=== PATIENT | female | born 1940 | race Caucasian/White ===

== ENCOUNTER → 2016-06-17 | Outpatient (CLI) | payer BC ==
[~2016-06-17] MED LIST: ASCA500 PO; B-CO1TAB21 PO; BIOT1CAP4 PO; CALC600T37 PO; CHOL100010 PO; CYCL0.05 OP; FERR325T51 PO; LISI40TA PO; LUTE6CAP PO; METO50TA7 PO; PANT40TA PO; ZINC50TA3 PO
[2016-06-17 17:16] LABS: BASO % 0.5 %; BASO ABS # 0.03 K/uL (0-0.2); COMPLETE YES; EOS % 1.3 %; HEMATOCRIT 40.4 % (37-47); LYMPH % 48.1 %; LYMPH ABS # 2.89 K/uL (1.2-3.4); MEAN CELL VOLUME 91.6 fL (80-100); MEAN CORPUSCULAR HEMOGLOBIN 31.1 pg (25-34); MEAN CORPUSCULAR HGB CONC 33.9 g/dl (32-36); MEAN PLATELET VOLUME 8.9 fL (7.4-10.4); NEUT % 39.1 %; PLATELET COUNT 347 K/uL (130-400); RED BLOOD COUNT 4.41 M/uL (4.2-5.4); WHITE BLOOD COUNT 6.01 K/uL (4.8-10.8)
[2016-06-17 17:54] LABS: BLOOD UREA NITROGEN 20 mg/dl (7-18); BUN/CREATININE RATIO 20.4 (10-20); CARBON DIOXIDE 28 mmol/L (21-32); CHLORIDE 102 mmol/L (98-107); CREATININE 0.97 mg/dl (0.60-1.20); GLUCOSE 87 mg/dl (70-99); POTASSIUM 4.6 mmol/L (3.5-5.1); SODIUM 137 mmol/L (136-145)
== END | disposition home or self-care (01) ==
LOC: C.LABBC 12:27
PROVIDERS: ATTEND Internal Medicine Geriatric Medicine
DX: I10 Essential (primary) hypertension (principal); D64.9 Anemia, unspecified

== ENCOUNTER → 2016-11-10 | Outpatient (CLI) | payer BC ==
[2016-11-10 17:18] LABS: BASO % 0.7 %; BASO ABS # 0.04 K/uL (0-0.2); COMPLETE YES; EOS % 1.9 %; HEMATOCRIT 37.3 % (37-47); IG% 0.2 %; LYMPH % 48.1 %; LYMPH ABS # 2.85 K/uL (1.2-3.4); MEAN CELL VOLUME 88.2 fL (80-100); MEAN CORPUSCULAR HEMOGLOBIN 27.9 pg (25-34); MEAN CORPUSCULAR HGB CONC 31.6 g/dl (32-36); MONO % 10.8 %; NEUT % 38.3 %; PLATELET COUNT 378 K/uL (130-400); RED BLOOD COUNT 4.23 M/uL (4.2-5.4); WHITE BLOOD COUNT 5.93 K/uL (4.8-10.8)
[2016-11-10 18:07] LABS: ALT/SGPT 21 U/L (12-78); AST/SGOT 25 U/L (15-37); BLOOD UREA NITROGEN 15 mg/dl (7-18); BUN/CREATININE RATIO 18.4 (10-20); CARBON DIOXIDE 29 mmol/L (21-32); CHLORIDE 103 mmol/L (98-107); CREATININE 0.79 mg/dl (0.60-1.20); GLUCOSE 89 mg/dl (70-99); POTASSIUM 4.2 mmol/L (3.5-5.1); SODIUM 139 mmol/L (136-145)
[2016-11-10 18:17] LABS: ALB/GLOB RATIO 1.2 (0.9-2); ALKALINE PHOSPHATASE 70 U/L (45-117)
[2016-11-10 18:32] LABS: CALCIUM 9.5 mg/dl (8.5-10.1)
== END | disposition home or self-care (01) ==
LOC: C.LABBC 12:41
PROVIDERS: ATTEND Internal Medicine Geriatric Medicine
DX: I10 Essential (primary) hypertension (principal); M85.80 Other specified disorders of bone density and structure, unspecified site; M19.90 Unspecified osteoarthritis, unspecified site; I49.5 Sick sinus syndrome; Z95.0 Presence of cardiac pacemaker; E55.9 Vitamin D deficiency, unspecified; D64.9 Anemia, unspecified

== ENCOUNTER → 2016-12-09 | Outpatient (CLI) | payer BC ==
[2016-12-09 13:45] LABS: HEMATOCRIT 32.1 % (37-47); MEAN CELL VOLUME 83.8 fL (80-100); MEAN CORPUSCULAR HEMOGLOBIN 25.3 pg (25-34); MEAN CORPUSCULAR HGB CONC 30.2 g/dl (32-36); MEAN PLATELET VOLUME 8.7 fL (7.4-10.4); PLATELET COUNT 420 K/uL (130-400); RED BLOOD COUNT 3.83 M/uL (4.2-5.4)
== END | disposition home or self-care (01) ==
LOC: C.LABBC 11:22
PROVIDERS: ATTEND Internal Medicine Geriatric Medicine
DX: M85.80 Other specified disorders of bone density and structure, unspecified site (principal); Z95.0 Presence of cardiac pacemaker; E55.9 Vitamin D deficiency, unspecified; D64.9 Anemia, unspecified

== ENCOUNTER → 2017-01-20 | Outpatient (CLI) | payer BC ==
[2017-01-20 13:22] LABS: BASO % 0.7 %; BASO ABS # 0.05 K/uL (0-0.2); EOS % 2.5 %; IG% 0.1 %; LYMPH ABS # 2.44 K/uL (1.2-3.4); MEAN CELL VOLUME 90.6 fL (80-100); MEAN CORPUSCULAR HEMOGLOBIN 28.6 pg (25-34); MEAN CORPUSCULAR HGB CONC 31.5 g/dl (32-36); MEAN PLATELET VOLUME 8.5 fL (7.4-10.4); MONO % 10.3 %; NEUT % 50.4 %; PLATELET COUNT 399 K/uL (130-400); RED BLOOD COUNT 2.87 M/uL (4.2-5.4); WHITE BLOOD COUNT 6.78 K/uL (4.8-10.8)
[2017-01-20 13:46] LABS: COMPLETE YES; HYPOCHROMIA PRESENT; POLYCHROMASIA 1+
== END | disposition home or self-care (01) ==
LOC: C.LABBC 11:06
PROVIDERS: ATTEND Internal Medicine Geriatric Medicine
DX: D64.9 Anemia, unspecified (principal)

== ENCOUNTER → 2017-01-24 | Outpatient (CLI) | payer BC ==
[2017-01-24 14:25] LABS: HEMATOCRIT 29.6 % (37-47); MEAN CELL VOLUME 93.7 fL (80-100); MEAN CORPUSCULAR HEMOGLOBIN 28.8 pg (25-34); MEAN CORPUSCULAR HGB CONC 30.7 g/dl (32-36); MEAN PLATELET VOLUME 8.5 fL (7.4-10.4); PLATELET COUNT 442 K/uL (130-400); RED BLOOD COUNT 3.16 M/uL (4.2-5.4); WHITE BLOOD COUNT 6.19 K/uL (4.8-10.8)
== END | disposition home or self-care (01) ==
LOC: C.LABBC 09:55
PROVIDERS: ATTEND Internal Medicine Geriatric Medicine
DX: D64.9 Anemia, unspecified (principal)

== ENCOUNTER → 2017-03-04 | Outpatient (CLI) | payer BC ==
[~2017-03-04] MED LIST changes: -LISI40TA PO
--- NOTE | 2017-03-04 14:55 | MAMMOGRAPHY REPORT ---
BILATERAL DIGITAL SCREENING MAMMOGRAM WITH CAD: 03/04/2017 CLINICAL HISTORY: Routine screening. Patient has no complaints. TECHNIQUE: Current study was also evaluated with a Computer Aided Detection (CAD) system. Bilateral CC and MLO views were obtained. COMPARISON: Comparison is made to exams dated: 03/03/2016 mammogram, 02/25/2015 mammogram, 12/05/2013 ma mmogram, 07/03/2012 mammogram, 06/30/2011 mammogram, and 06/29/2010 mammogram - [facility] nter. BREAST COMPOSITION: There are scattered areas of fibroglandular density in both breasts. FINDINGS: No suspicious masses, calcifications, or areas of architectural distortion are noted in ei ther breast. There has been no significant interval change compared to prior exams. Scattered bilater al benign-appearing calcifications are not significantly changed. IMPRESSION: ACR BI-RADS CATEGORY 2: BENIGN There is no mammographic evidence of malignancy. A 1 year screening mammogram is recommended. The pa tient will receive written notification of the results. Approximately 10% of breast cancers are not detected with mammography. A negative mammographic report should not delay biopsy if a clinically suggestive mass is present. Sherice Richardson M.D. ah/:03/04/2017 10:25:44 Assistant Community Director: Suzan HAYNES(Yary)([place])([place]), [facility] letter sent: Normal 1/2 BI-RADS Code: ACR BI-RADS Category 2: Benign
== END | disposition home or self-care (01) ==
LOC: C.MAMM 09:34
PROVIDERS: ATTEND Obstetrics & Gynecology
DX: Z12.31 Encounter for screening mammogram for malignant neoplasm of breast (principal)

== ENCOUNTER → 2017-05-04 | Outpatient (CLI) | payer BC ==
[~2017-05-04] MED LIST changes: +OPTIRAY 320 IV PRN
--- NOTE | 2017-05-04 13:10 | DIAGNOSTIC IMAGING REPORT ---
ABD/PELVIS IV AND ORAL CONT CLINICAL HISTORY: 76 years-old Female presenting with D64.9, chronic iron deficiency anemia, unable to undergo capsule study, concern for small bowel mass. TECHNIQUE: Multidetector CT of the abdomen and pelvis was performed after the administration of oral and intravenous contrast. IV contrast: 93 mL of Optiray 320. A dose lowering technique was used consistent with the principles of ALARA (as low as reasonably achievable). COMPARISON: 06/29/2014. CT DOSE (mGy.cm): The estimated cumulative dose is 271.10 mGy.cm. FINDINGS: Gang Worker topogram: Partially visualized pacer leads to the right atrium and right ventricular apex. Scoliotic curvature of the lumbar spine with posterior fusion hardware at L4-5 with interbody spacer. Lung bases: Minimal dependent changes likely atelectasis. Normal heart size. No pericardial or pleural effusion. Liver: Normal morphology. No liver lesion. Patent hepatic vasculature. Biliary: No intrahepatic or extrahepatic biliary ductal dilatation. Normal gallbladder. Pancreas: Normal. Spleen: Normal. Adrenal glands: Normal. Kidneys and ureters: Small hypodensity at the superior pole of the right kidney likely simple cyst. Mild left pelvocaliectasis. No nephrolithiasis. The ureters are normal and nondilated. Bladder: The configuration of the bladder suggests ligamentous laxity in the pelvis. Pelvic organs: Uterus surgically absent. Bowel: Diverticulosis of the sigmoid colon. Mild stool burden throughout the colon, which is normal in caliber. No evidence of a small bowel mass. No bowel obstruction. Large hiatal hernia. The hiatal hernia has a twisted configuration although no distention is present suggest volvulus. Peritoneal cavity: No free fluid or intraperitoneal gas. Lymph nodes: No enlarged lymph nodes in the abdomen or pelvis. Vasculature: Atherosclerosis of the normal caliber abdominal aorta. IVC patent. Abdominal wall: Small fat-containing umbilical hernia. Musculoskeletal: Posterior lumbar fusion at L4-5 with interbody spacer. Degenerative changes of the sacroiliac joints. IMPRESSION: 1. No evidence of a small bowel mass. 2. Diverticulosis, which could account for the patient's iron deficiency anemia if there is clinical history of bleeding. 3. Mild left pelvocaliectasis without evidence of left ureteral dilation or obstructing mass or calculus. This may represent left UPJ obstruction. Electronically signed by: Odin Walker M.D. 05/04/2017 1:08 PM Dictated Date/Time: 05/04/2017 12:55 PM
== END | disposition home or self-care (01) ==
LOC: C.CTS 11:50
PROVIDERS: ATTEND Internal Medicine Hematology & Oncology
DX: D64.9 Anemia, unspecified (principal); K57.90 Diverticulosis of intestine, part unspecified, without perforation or abscess without bleeding

== ENCOUNTER → 2017-07-14 | Outpatient (CLI) | payer BC ==
[~2017-07-14] MED LIST changes: -METO50TA7 PO; +METO50TA8 PO; -OPTIRAY 320 IV PRN
[2017-07-14 13:37] LABS: BASO % 0.9 %; BASO ABS # 0.05 K/uL (0-0.2); EOS % 2.4 %; EOS ABS # 0.14 K/uL (0-0.5); HEMATOCRIT 41.1 % (37-47); HEMOGLOBIN 13.6 g/dL (12.0-16.0); IG# 0.01 K/uL (0.00-0.02); LYMPH % 41.6 %; LYMPH ABS # 2.44 K/uL (1.2-3.4); MEAN CELL VOLUME 96.5 fL (80-100); MEAN CORPUSCULAR HEMOGLOBIN 31.9 pg (25-34); MEAN CORPUSCULAR HGB CONC 33.1 g/dl (32-36); MEAN PLATELET VOLUME 10.1 fL (7.4-10.4); MONO % 10.4 %; MONO ABS # 0.61 K/uL (0.11-0.59); NEUT % 44.5 %; NEUT ABS # 2.61 K/uL (1.4-6.5); PLATELET COUNT 315 K/uL (130-400); RED CELL DISTRIBUTION WIDTH CV 14.2 % (11.5-14.5); RED CELL DISTRIBUTION WIDTH SD 50.3 fL (36.4-46.3); WHITE BLOOD COUNT 5.86 K/uL (4.8-10.8)
[2017-07-14 14:22] LABS: BLOOD UREA NITROGEN 15 mg/dl (7-18); CREATININE 0.88 mg/dl (0.60-1.20); GLUCOSE 110 mg/dl (70-99)
[2017-07-14 14:23] LABS: CARBON DIOXIDE 27 mmol/L (21-32); POTASSIUM 4.5 mmol/L (3.5-5.1); SODIUM 136 mmol/L (136-145)
[2017-07-14 14:26] LABS: CHOLESTEROL 175 mg/dl (0-200); LDL CHOLESTEROL CALCULATED 83 mg/dl
== END | disposition home or self-care (01) ==
LOC: C.LABBC 10:49
PROVIDERS: ATTEND Internal Medicine Geriatric Medicine
DX: I10 Essential (primary) hypertension (principal); D64.9 Anemia, unspecified; I70.0 Atherosclerosis of aorta

== ENCOUNTER → 2017-08-17 | Outpatient (CLI) | payer BC | END | disposition home or self-care (01) | LOC: C.PATHSPEC 17:53 | PROVIDERS: ATTEND Dermatology | DX: L57.0 Actinic keratosis (principal) ==

== ENCOUNTER → 2017-08-30 | Outpatient (CLI) | payer BC ==
[2017-08-30 14:09] LABS: BLOOD UREA NITROGEN 17 mg/dl (7-18); CALCIUM 9.2 mg/dl (8.5-10.1); CARBON DIOXIDE 28 mmol/L (21-32); CREATININE 0.87 mg/dl (0.60-1.20); GLUCOSE 97 mg/dl (70-99); POTASSIUM 4.1 mmol/L (3.5-5.1); SODIUM 130 mmol/L (136-145)
== END | disposition home or self-care (01) ==
LOC: C.LABBC 11:19
PROVIDERS: ATTEND Internal Medicine Geriatric Medicine
DX: I10 Essential (primary) hypertension (principal)

== ENCOUNTER → 2017-09-14 | Outpatient (CLI) | payer BC ==
[2017-09-14 14:22] LABS: BLOOD UREA NITROGEN 18 mg/dl (7-18); CALCIUM 9.2 mg/dl (8.5-10.1); CARBON DIOXIDE 30 mmol/L (21-32); CREATININE 0.94 mg/dl (0.60-1.20); GLUCOSE 100 mg/dl (70-99); POTASSIUM 4.3 mmol/L (3.5-5.1); SODIUM 137 mmol/L (136-145)
== END | disposition home or self-care (01) ==
LOC: C.LABBC 10:08
PROVIDERS: ATTEND Internal Medicine Geriatric Medicine
DX: I10 Essential (primary) hypertension (principal); E87.1 Hypo-osmolality and hyponatremia

== ENCOUNTER 2020-11-23 19:08 | Inpatient (IN) ==
[2020-11-23] MEDS ORDERED: SODIUM CHLORIDE 0.9% 1000ML 1,000 ML IV STA (19:34)
[2020-11-23] MEDS ORDERED: SODIUM CHLORIDE 0.9% 1000ML 1,000 ML IV SCH (19:45)
--- NOTE | 2020-11-23 19:56 | Emergency Department Note ---
Impression & Plan Acute GI bleeding, Acute hypotension, Abdominal pain ED Provider Note INFORMANT: Patient ED PROVIDER(S): Prashanth Galvan MD CHIEF COMPLAINT: Complaint of black tarry stools PLAN: Disposition: Admitted Condition: Guarded Outpatient prescription management: none Referral: None MEDICAL DECISION MAKING: Patient presented because of black tarry stools and was hypotensive, pale and tachycardic on arrival. She was placed in room B and I promptly evaluated the patient. She had mid abdominal discomfort and was Hemoccult positive with melanotic stools from below. She had 2 IVs established. She was hydrated normal saline. Protonix and Pepcid was given. She was consented for packed red blood cell transfusion. The patient was found to have a significant leukocytosis on CBC and significant anemia with a hemoglobin of 6.6. She had elevated BUN and her chemistry panel consistent with suspected upper GI bleed. Her case was discussed with gastroenterology, Dr. Beatrice Ribera and he recommended admission, resuscitation and to have her prepped for likely endoscopy tomorrow. The patient was transfused in the ER. Consultation was made with Dr. Regan Hernandez of the [facility] service. Patient was evaluated in the ER for further management. Triage Nursing notes reviewed and agree them. Vital Signs: reviewed and remarkable for hypotension and tachycardia Differential diagnosis: Diverticulosis, AVM, coagulopathy, colitis, inflammatory bowel disease, malignancy, Martha-Brothers tear, esophagitis, peptic ulcer disease, variceal bleed, gastritis, epistaxis, fissure, hemorrhoids, as well as other pathologies. Diagnostics interpreted by me: ECG: Twelve-lead ECG reveals paced rhythm at [address] elevation. No PVCs. Cardiac Monitoring: Order for cardiac monitoring placed. The patient was noted to have a paced rhythm at 108 bpm. Imaging studies: CT imaging of the abdomen pelvis reveals a large hiatal hernia. There was no evidence of obstruction. No acute intra-abdominal pathology seen per stat rad HPI: The patient is a 80 year old female who presents to the Emergency Room with complaints of black tarry stools. This started today and is the first time she is experienced this problem.. The patient also notes the following associated symptoms, lightheadedness, dizziness, weakness, shortness of breath, and generalized abdominal pain. The patient has found no relieving factors. Current pain is rated as 4/10. Patient is not anticoagulated. Pt denies LOC, headache, fevers, chills, diaphoresis, visual changes, neck pain, chest pain, breathing difficulties, nausea, vomiting, back pain, hematochezia, urinary symptoms, numbness, lymphadenopathy, rash, or other complaints. ROS: See above HPI for pertinent positives & negatives. A total of 10 systems reviewed and were otherwise negative. PAST MEDICAL HISTORY:See Below , hypertension PAST SURGICAL HISTORY:See Below, FAMILY HISTORY:See Below SOCIAL HISTORY:See Below, HOME MEDICATIONS:See Below ALLERGIES:See Below VITALS:See Below PHYSICAL EXAMINATION: GENERAL: Awake, alert, well-appearing, in no distress HENT: Normocephalic, atraumatic. Oropharynx unremarkable. EYES: Pale conjunctiva. Sclera non-icteric. NECK: Inspection normal. Non-tender. Supple. No nuchal rigidity. FROM. No masses. RESPIRATORY: Clear to auscultation. No wheezes. No rales. Normal respiratory effort. CARDIAC: Borderline tachycardic rate. Normal rhythm. No murmurs. No rubs. Extremities warm and well perfused. Pulses equal. No JVD. GI: Soft, non-distended. No tenderness to palpation. No rebound or guarding. No masses. RECTAL: Black tarry stool. Hemoccult positive. MUSCULOSKELETAL: Atraumatic. Chest examination reveals no tenderness. The back is symmetrical on inspection without obvious abnormality. There is no CVA tenderness to palpation. No joint edema. LOWER EXTREMITIES: Calves are equal size bilaterally and non-tender. No edema. No discoloration. NEURO: Normal sensorium. No sensory or motor deficits noted. SKIN: No rash or jaundice noted. CRITICAL CARE: I have personally spent greater than 40 minutes of critical care time in the direct management of this patient. This includes bedside care, interpretation o f diagnostic studies, and testing, discussion with consultants, patient, and family members, and other required patient management activities. These minutes are in excess of all separately billable procedures. Prashanth Galvan MD Past Med/Surg History Medical History (Updated 11/23/20 @ 19:53 by Prashanth Galvan MD) Actinic keratosis Anemia Aortic atherosclerosis GERD (gastroesophageal reflux disease) Hearing loss, bilateral History of SCC (squamous cell carcinoma) of skin HTN (hypertension) Osteopenia Sick sinus syndrome Vitamin D deficiency Surgical History (Updated 11/21/20 @ 10:49 by Bruce Zapata DO) Cardiac pacemaker Followed by [facility] H/O Spinal surgery History of appendectomy History of arthroscopy of shoulder History of section History of hemorrhoidectomy History of hysterectomy with bilateral oophorectomy History of knee replacement, total bilateral History of permanent cardiac pacemaker placement History of rotator cuff surgery Family History Other No significant family history Denies family history of Ovarian cancer Breast cancer Colorectal cancer Social History Smoking Status: Never smoker Second Hand Exposure: No; Hx Alcohol Use: Yes Alcohol type: wine Alcohol Intake Frequency: 4 or More x per/Week Hx Substance Use: No Preferred Language: Eritrean Communication Ability: Effective Visual Impairment: Limited Hearing Ability: Use of Hearing Aid Sap Abap Programmer Required: No marital status: Current Living Situation: Spouse current occupational status: 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 Feels Safe at Home: Yes Childhood Exposure to Second-Hand Smoke: No caffeine: No Dental Care, Regularly: Yes Physical Activity Frequency: 3-4 Times per Week Physical Activity Frequency Comment: walks Seatbelt Use: always Sunscreen Use: Yes Do you think of yourself as: straight/heterosexual Allergies Allergies Allergy/AdvReac Type Severity Reaction Status Date / Time amlodipine Allergy Intermediate RASH Verified 11/23/20 21:37 celecoxib Allergy Intermediate HIVES Verified 11/23/20 21:37 hydrochlorothiazide AdvReac Intermediate hyponatremi Verified 11/23/20 21:37 a Home Meds Home Medications Medication Instructions Recorded Confirmed ascorbic acid (vitamin C) 500 mg 500 mg PO QAM tab 03/01/19 11/23/20 tablet biotin 2,500 mcg capsule 2,500 mcg PO QAM cap 03/01/19 11/23/20 calcium carbonate 600 mg (1,500 1 cap PO QAM cap 03/01/19 11/23/20 mg)-vitamin D3 500 unit capsule cholecalciferol (vitamin D3) 25 2,000 units PO QAM tab 03/01/19 11/23/20 mcg (1,000 unit) tablet dorzolamide 22.3 mg-timolol 6.8 1 drops OP HS ml 03/01/19 11/23/20 mg/mL eye drops lutein 6 mg tablet 6 mg PO QAM tab 03/01/19 11/23/20 metoprolol succinate 25 mg 25 mg PO QAM tab 03/01/19 11/23/20 tablet,extended release 24 hr hydrochlorothiazide 12.5 mg capsule 12.5 mg PO QAM 06/14/19 11/23/20 tafluprost (PF) 0.0015 % eye drops 1 drp OPHTHALMIC (EYE) HS 03/27/20 11/23/20 in a dropperette cyclosporine 0.05 % eye drops in a 1 drp OP BID ea 11/21/20 11/23/20 dropperette valsartan 320 mg tablet 320 mg PO DAILY tab 11/21/20 11/23/20 ibuprofen 400 mg PO Q6H PRN 11/23/20 11/23/20 mirabegron 25 mg PO QAM 11/23/20 11/23/20 olmesartan 40 mg PO PM 11/23/20 11/23/20 Results & Data (ED) Vital Signs Vital Signs - 24 hr 11/23/20 19:16 11/23/20 19:32 11/23/20 19:49 Temperature 36.3 C L Temperature Source Temporal Artery Scan Pulse Rate 74 111 H 96 H Pulse Rate from SpO2 Sensor 111 H Respiratory Rate 18 27 H 22 Respiratory Effort / Characteristics Non-Labored Spontaneous Respiratory Depth Normal Blood Pressure 85/50 L 110/63 Blood Pressure Mean 61 78 Blood Pressure Position Sitting Pulse Oximetry 93 99 95 Oxygen Delivery Method Room Air Room Air Room Air Sepsis Recent Fever Within 48 Hours No Sepsis New/Unexplained Change in Mental Status N/A Sepsis Action Taken by Nursing No Action Required 11/23/20 20:00 11/23/20 20:10 11/23/20 20:20 Temperature Temperature Source Pulse Rate 110 H 115 H 109 H Pulse Rate from SpO2 Sensor 109 H 114 H 106 H Respiratory Rate 24 20 18 Respiratory Effort / Characteristics Respiratory Depth Blood Pressure Blood Pressure Mean Blood Pressure Position Pulse Oximetry 99 97 96 Oxygen Delivery Method Room Air Sepsis Recent Fever Within 48 Hours Sepsis New/Unexplained Change in Mental Status Sepsis Action Taken by Nursing 11/23/20 20:28 11/23/20 20:30 11/23/20 20:31 Temperature Temperature Source Pulse Rate 108 H 116 H 116 H Pulse Rate from SpO2 Sensor 93 H 116 H 114 H Respiratory Rate 26 H 27 H 26 H Respiratory Effort / Characteristics Respiratory Depth Blood Pressure 134/67 162/66 H Blood Pressure Mean 89 98 Blood Pressure Position Pulse Oximetry 96 95 96 Oxygen Delivery Method Room Air Room Air Room Air Sepsis Recent Fever Within 48 Hours Sepsis New/Unexplained Change in Mental Status Sepsis Action Taken by Nursing 11/23/20 20:51 11/23/20 21:00 11/23/20 21:09 Temperature Temperature Source Pulse Rate 117 H 104 H 106 H Pulse Rate from SpO2 Sensor 111 H 111 H Respiratory Rate 23 24 23 Respiratory Effort / Characteristics Respiratory Depth Blood Pressure 143/63 H Blood Pressure Mean 89 Blood Pressure Position Pulse Oximetry 97 98 Oxygen Delivery Method Sepsis Recent Fever Within 48 Hours Sepsis New/Unexplained Change in Mental Status Sepsis Action Taken by Nursing 11/23/20 21:10 11/23/20 21:17 11/23/20 21:20 Temperature Temperature Source Pulse Rate 117 H 118 H 114 H Pulse Rate from SpO2 Sensor 117 H 118 H 115 H Respiratory Rate 22 27 H 27 H Respiratory Effort / Characteristics Respiratory Depth Blood Pressure 128/59 L Blood Pressure Mean 82 Blood Pressure Position Pulse Oximetry 97 96 96 Oxygen Delivery Method Room Air Room Air Sepsis Recent Fever Within 48 Hours Sepsis New/Unexplained Change in Mental Status Sepsis Action Taken by Nursing 11/23/20 21:30 11/23/20 21:38 11/23/20 21:40 Temperature 37.1 C Temperature Source Oral Pulse Rate 116 H 114 H 92 H Pulse Rate from SpO2 Sensor 109 H 123 H 91 H Respiratory Rate 25 H 26 H 29 H Respiratory Effort / Characteristics Respiratory Depth Blood Pressure 119/67 121/79 Blood Pressure Mean 84 93 Blood Pressure Position Pulse Oximetry 96 93 96 Oxygen Delivery Method Room Air Room Air Sepsis Recent Fever Within 48 Hours Sepsis New/Unexplained Change in Mental Status Sepsis Action Taken by Nursing 11/23/20 21:41 11/23/20 21:45 11/23/20 21:50 Temperature Temperature Source Pulse Rate 119 H 117 H 119 H Pulse Rate from SpO2 Sensor 119 H 117 H 119 H Respiratory Rate 23 24 25 H Respiratory Effort / Characteristics Respiratory Depth Blood Pressure 121/79 137/66 123/75 Blood Pressure Mean 93 89 91 Blood Pressure Position Pulse Oximetry 94 94 95 Oxygen Delivery Method Sepsis Recent Fever Within 48 Hours Sepsis New/Unexplained Change in Mental Status Sepsis Action Taken by Nursing 11/23/20 21:51 11/23/20 21:55 11/23/20 22:00 Temperature 37.1 C Temperature Source Oral Pulse Rate 119 H 119 H 100 H Pulse Rate from SpO2 Sensor 119 H 121 H 111 H Respiratory Rate 34 H 23 25 H Respiratory Effort / Characteristics Respiratory Depth Blood Pressure 141/60 H 117/58 L Blood Pressure Mean 87 77 Blood Pressure Position Pulse Oximetry 96 95 97 Oxygen Delivery Method Sepsis Recent Fever Within 48 Hours Sepsis New/Unexplained Change in Mental Status Sepsis Action Taken by Nursing 11/23/20 22:01 11/23/20 22:06 11/23/20 22:10 Temperature 37.0 C Temperature Source Oral Pulse Rate 107 H 102 H 112 H Pulse Rate from SpO2 Sensor 107 H 104 H 116 H Respiratory Rate 23 27 H 28 H Respiratory Effort / Characteristics Respiratory Depth Blood Pressure 124/71 129/68 Blood Pressure Mean 88 88 Blood Pressure Position Pulse Oximetry 96 97 95 Oxygen Delivery Method Sepsis Recent Fever Within 48 Hours Sepsis New/Unexplained Change in Mental Status Sepsis Action Taken by Nursing 11/23/20 22:11 11/23/20 22:15 11/23/20 22:20 Temperature Temperature Source Pulse Rate 117 H 104 H 112 H Pulse Rate from SpO2 Sensor 118 H 111 H 113 H Respiratory Rate 27 H 26 H 27 H Respiratory Effort / Characteristics Respiratory Depth Blood Pressure 122/66 115/66 Blood Pressure Mean 84 82 Blood Pressure Position Pulse Oximetry 96 96 96 Oxygen Delivery Method Room Air Room Air Sepsis Recent Fever Within 48 Hours Sepsis New/Unexplained Change in Mental Status Sepsis Action Taken by Nursing 11/23/20 22:21 11/23/20 22:25 11/23/20 22:40 Temperature 37 C Temperature Source Oral Pulse Rate 119 H 115 H 113 H Pulse Rate from SpO2 Sensor 120 H 116 H Respiratory Rate 26 H 25 H 20 Respiratory Effort / Characteristics Respiratory Depth Blood Pressure 121/67 125/72 Blood Pressure Mean 85 89 Blood Pressure Position Pulse Oximetry 96 96 96 Oxygen Delivery Method Room Air Room Air Sepsis Recent Fever Within 48 Hours Sepsis New/Unexplained Change in Mental Status Sepsis Action Taken by Nursing 11/23/20 23:40 Temperature 37 C Temperature Source Oral Pulse Rate 108 H Pulse Rate from SpO2 Sensor Respiratory Rate 20 Respiratory Effort / Characteristics Respiratory Depth Blood Pressure 107/71 Blood Pressure Mean 83 Blood Pressure Position Pulse Oximetry 94 Oxygen Delivery Method Sepsis Recent Fever Within 48 Hours Sepsis New/Unexplained Change in Mental Status Sepsis Action Taken by Nursing Laboratory Data Result diagrams: 11/23/20 20:00 11/23/20 20:00 Lab Results 11/23/20 11/23/20 11/23/20 Range/Units 20:00 20:00 20:00 WBC 18.96 H (4.8-10.8) K/uL RBC 3.24 L (4.2-5.4) M/uL Hgb 6.2 L* (12.0-16.0) g/dL Hct 20.6 L* (37-47) % MCV 63.6 L (80-100) fL MCH 19.1 L (25-34) pg MCHC 30.1 L (32-36) g/dL RDW Std Deviation 48.3 H (36.4-46.3) fL RDW Coeff of Cuate 20.5 H (11.5-14.5) % Plt Count 435 H (130-400) K/uL MPV 8.1 (7.4-10.4) fL Immature Gran % (Auto) 0.2 % Neut % (Auto) 90.1 % Lymph % (Auto) 4.0 % [place] % (Auto) 5.6 % Eos % (Auto) 0.0 % Baso % (Auto) 0.1 % Neut # (Auto) 17.09 H (1.4-6.5) K/uL Lymph # (Auto) 0.75 L (1.2-3.4) K/uL [place] # (Auto) 1.07 H (0.11-0.59) K/uL Eos # (Auto) 0.00 (0-0.5) K/uL Baso # (Auto) 0.01 (0-0.2) K/uL Immature Gran # (Auto) 0.04 H (0.00-0.02) K/uL Hypochromasia Present Anisocytosis Present Microcytosis Present Target Cells 1+ PT Cancelled INR Cancelled APTT Cancelled PTT Ratio Cancelled Sodium (136-145) mmol/L Potassium (3.5-5.1) mmol/L Chloride (98-107) mmol/L Carbon Dioxide (21-32) mmol/L Anion Gap (3-11) BUN (7-18) mg/dl Creatinine (0.6-1.2) mg/dl Est Cr Clr Drug Dosing Est GFR ( Amer) ml/min Est GFR (Non-Af Amer) ml/min BUN/Creatinine Ratio (10-20) Glucose (70-99) mg/dl Calcium (8.5-10.1) mg/dl Total Bilirubin (0.2-1) mg/dl AST (15-37) U/L ALT (12-78) U/L Alkaline Phosphatase (45-117) U/L Troponin I (0-0.045) ng/ml Total Protein (6.4-8.2) gm/dl Albumin (3.4-5.0) gm/dl Globulin (2.5-4.0) gm/dl Albumin/Globulin Ratio (0.9-2) POC Stool Occult Blood (Negative) COVID-19 Eval Order SARS-CoV-2 (PCR) (Negative) Blood Type O Positive Antibody Screen NEGATIVE Crossmatch See Detail 11/23/20 11/23/20 11/23/20 Range/Units 20:00 20:06 21:12 WBC (4.8-10.8) K/uL RBC (4.2-5.4) M/uL Hgb (12.0-16.0) g/dL Hct (37-47) % MCV (80-100) fL MCH (25-34) pg MCHC (32-36) g/dL RDW Std Deviation (36.4-46.3) fL RDW Coeff of Cuate (11.5-14.5) % Plt Count (130-400) K/uL MPV (7.4-10.4) fL Immature Gran % (Auto) % Neut % (Auto) % Lymph % (Auto) % [place] % (Auto) % Eos % (Auto) % Baso % (Auto) % Neut # (Auto) (1.4-6.5) K/uL Lymph # (Auto) (1.2-3.4) K/uL [place] # (Auto) (0.11-0.59) K/uL Eos # (Auto) (0-0.5) K/uL Baso # (Auto) (0-0.2) K/uL Immature Gran # (Auto) (0.00-0.02) K/uL Hypochromasia Anisocytosis Microcytosis Target Cells PT 10.5 INR 1.0 APTT 21.4 PTT Ratio 0.8 Sodium 136 (136-145) mmol/L Potassium 4.2 (3.5-5.1) mmol/L Chloride 104 (98-107) mmol/L Carbon Dioxide 22 (21-32) mmol/L Anion Gap 11.0 (3-11) BUN 83 H (7-18) mg/dl Creatinine 1.41 H (0.6-1.2) mg/dl Est Cr Clr Drug Dosing Not Reportable Est GFR ( Amer) 40.1 ml/min Est GFR (Non-Af Amer) 34.6 ml/min BUN/Creatinine Ratio 59.1 H (10-20) Glucose 162 H (70-99) mg/dl Calcium 9.1 (8.5-10.1) mg/dl Total Bilirubin 0.4 (0.2-1) mg/dl AST 22 (15-37) U/L ALT 20 (12-78) U/L Alkaline Phosphatase 48 (45-117) U/L Troponin I 0.016 (0-0.045) ng/ml Total Protein 7.2 (6.4-8.2) gm/dl Albumin 3.8 (3.4-5.0) gm/dl Globulin 3.4 (2.5-4.0) gm/dl Albumin/Globulin Ratio 1.1 (0.9-2) POC Stool Occult Blood Positive A (Negative) COVID-19 Eval Order SARS-CoV-2 (PCR) (Negative) Blood Type Antibody Screen Crossmatch 11/23/20 11/23/20 Range/Units 22:25 22:25 WBC (4.8-10.8) K/uL RBC (4.2-5.4) M/uL Hgb (12.0-16.0) g/dL Hct (37-47) % MCV (80-100) fL MCH (25-34) pg MCHC (32-36) g/dL RDW Std Deviation (36.4-46.3) fL RDW Coeff of Cuate (11.5-14.5) % Plt Count (130-400) K/uL MPV (7.4-10.4) fL Immature Gran % (Auto) % Neut % (Auto) % Lymph % (Auto) % [place] % (Auto) % Eos % (Auto) % Baso % (Auto) % Neut # (Auto) (1.4-6.5) K/uL Lymph # (Auto) (1.2-3.4) K/uL [place] # (Auto) (0.11-0.59) K/uL Eos # (Auto) (0-0.5) K/uL Baso # (Auto) (0-0.2) K/uL Immature Gran # (Auto) (0.00-0.02) K/uL Hypochromasia Anisocytosis Microcytosis Target Cells PT INR APTT PTT Ratio Sodium (136-145) mmol/L Potassium (3.5-5.1) mmol/L Chloride (98-107) mmol/L Carbon Dioxide (21-32) mmol/L Anion Gap (3-11) BUN (7-18) mg/dl Creatinine (0.6-1.2) mg/dl Est Cr Clr Drug Dosing Est GFR ( Amer) ml/min Est GFR (Non-Af Amer) ml/min BUN/Creatinine Ratio (10-20) Glucose (70-99) mg/dl Calcium (8.5-10.1) mg/dl Total Bilirubin (0.2-1) mg/dl AST (15-37) U/L ALT (12-78) U/L Alkaline Phosphatase (45-117) U/L Troponin I (0-0.045) ng/ml Total Protein (6.4-8.2) gm/dl Albumin (3.4-5.0) gm/dl Globulin (2.5-4.0) gm/dl Albumin/Globulin Ratio (0.9-2) POC Stool Occult Blood (Negative) COVID-19 Eval Order Covid19 at [facility] SARS-CoV-2 (PCR) NEGATIVE (Negative) Blood Type Antibody Screen Crossmatch Administered Medications Sodium Chloride (Nss 1000ml) 1,000 mls @ 125 mls/hr IV .Q8H STA Stop: 11/24/20 03:33 Last Admin: 11/23/20 20:17 Dose: 125 mls/hr Documented by: [id number] Pantoprazole Sodium 40 mg/ (Dextrose) 100 mls @ 20 mls/hr IV Q5H [facility]RIST Stop: 12/23/20 20:11 Last Admin: 11/23/20 21:10 Dose: 8 mg/hr, 20 mls/hr Documented by: [id number] Discontinued Medications Famotidine (Famotidine 20mg/5ml Iv Push) 20 mg IV ONE STA Stop: 11/23/20 19:58 Last Admin: 11/23/20 20:04 Dose: 20 mg Documented by: [id number] Sodium Chloride (Nss 1000ml) 1,000 mls @ 999 mls/hr IV .Q1H1M [facility]ST Stop: 11/23/20 20:45 Last Infusion: 11/23/20 21:10 Dose: 0 mls/hr Documented by: [id number] Admin: 11/23/20 20:04 Dose: 999 mls/hr Documented by: [id number] Pantoprazole Sodium (Protonix Bolus/Drip) 0 mls @ 1 mls/hr IV ONE STA Stop: 11/23/20 19:58 Last Admin: 11/23/20 21:11 Dose: Not Given Documented by: [id number] Pantoprazole Sodium 80 mg/ (Dextrose) 120 mls @ 400 mls/hr IV NOW ONE Stop: 11/23/20 20:14 Last Infusion: 11/23/20 21:11 Dose: 0 mls/hr Documented by: [id number] Admin: 11/23/20 20:23 Dose: 400 mls/hr Documented by: [id number] Discharge Plan Visit Data Chief Complaint: Illness Stated Complaint: FATIGUE, VOMITING, DIARRHEA ED Provider: Prashanth Galvan Discharge Problem: Acute GI bleeding, Acute hypotension, Abdominal pain Forms Stand Alone Forms: [facility] Prescriptions Prescriptions: No Action hydrochlorothiazide 12.5 mg capsule 12.5 mg PO QAM RF: 0 Zioptan (PF) 0.0015 % dropperette 1 drp ophthalmic (eye) HS RF: 0 valsartan 320 mg tablet 320 mg PO DAILY RF: 0 biotin 2,500 mcg capsule 2,500 mcg PO QAM RF: 0 calcium carbonate-vitamin D3 [Calcium 600 with Vitamin D3] 600 mg(1,500mg) - 500 unit capsule 1 cap PO QAM RF: 0 dorzolamide-timolol 22.3-6.8 mg/mL drops 1 drops OP HS RF: 0 lutein 6 mg tablet 6 mg PO QAM RF: 0 metoprolol succinate 25 mg tablet extended release 24 hr 25 mg PO QAM RF: 0 ascorbic acid (vitamin C) 500 mg tablet 500 mg PO QAM RF: 0 cholecalciferol (vitamin D3) 1,000 unit (25 mcg) tablet 2,000 units PO QAM RF: 0 cyclosporine 0.05 % dropperette 1 drp OP BID RF: 0 ibuprofen 200 mg Tablet 400 mg PO Q6H PRN (Reason: Pain) RF: 0 olmesartan 40 mg tablet 40 mg PO PM RF: 0 mirabegron 25 mg tablet extended release 24 hr 25 mg PO QAM RF: 0
[2020-11-23] MEDS ORDERED: PANTOprazole 80 MG in DEXTROSE 5% 100 ML IV ONE (19:57)
[2020-11-23] MEDS ORDERED: PANTOPRAZOLE BOLUS/DRIP 1 EA IV STA (19:57)
[2020-11-23] MEDS ORDERED: FAMOTIDINE 20MG/5ML IV PUSH IV STA (19:57)
[2020-11-23 20:31] LABS: Hematocrit (blood only) 20.6 % (37-47); Hemoglobin 6.2 g/dL (12.0-16.0); Mean Corpuscular Hemoglobin 19.1 pg (25-34); Mean Corpuscular Hgb Conc 30.1 g/dL (32-36); Mean Corpuscular Volume 63.6 fL (80-100); Mean Platelet Volume 8.1 fL (7.4-10.4); Platelet Count 435 K/uL (130-400); RDW Coefficient of Variation 20.5 % (11.5-14.5); RDW Standard Deviation 48.3 fL (36.4-46.3); Red Blood Count 3.24 M/uL (4.2-5.4); White Blood Count 18.96 K/uL (4.8-10.8)
[2020-11-23] MEDS ORDERED: SODIUM CHLORIDE 0.9% 250 ML IV PRN (20:32)
[2020-11-23 20:50] LABS: Anisocytosis Present; Basophils # (auto) 0.01 K/uL (0-0.2); Basophils % (auto) 0.1 %; Hypochromasia Present; Immature Granulocytes # (auto) 0.04 K/uL (0.00-0.02); Immature Granulocytes % (auto) 0.2 %; Lymphocytes # (auto) 0.75 K/uL (1.2-3.4); Microcytosis Present; Monocytes # (auto) 1.07 K/uL (0.11-0.59); Monocytes % (auto) 5.6 %; Neutrophils # (auto) 17.09 K/uL (1.4-6.5); Neutrophils % (auto) 90.1 %; Target Cells 1+
[2020-11-23 21:01] LABS: Alanine Aminotransferase 20 U/L (12-78); Albumin Level 3.8 gm/dl (3.4-5.0); Aspartate Aminotransferase 22 U/L (15-37); BUN Creatinine Ratio 59.1 (10-20); Blood Urea Nitrogen 83 mg/dl (7-18); Calcium 9.1 mg/dl (8.5-10.1); Carbon Dioxide 22 mmol/L (21-32); Chloride 104 mmol/L (98-107); Est GFR (African American) 40.1 ml/min; Est GFR (Non-African American) 34.6 ml/min; Glucose 162 mg/dl (70-99); Potassium 4.2 mmol/L (3.5-5.1); Sodium 136 mmol/L (136-145)
[2020-11-23 21:06] LABS: Albumin Globulin Ratio 1.1 (0.9-2); Alkaline Phosphatase 48 U/L (45-117); Bilirubin,Total 0.4 mg/dl (0.2-1); Globulin 3.4 gm/dl (2.5-4.0); Total Protein 7.2 gm/dl (6.4-8.2); Troponin I 0.016 ng/ml (0-0.045)
[2020-11-23] MEDS: PANTOprazole 40 MG in DEXTROSE 5% 100 ML IV SCH (21:10)
[2020-11-23 21:39] LABS: Partial Thromboplastin Ratio 0.8; Partial Thromboplastin Time 21.4 Seconds (21.0-31.0); Prothrombin Time 10.5 Seconds (9.0-12.0)
--- NOTE | 2020-11-23 23:04 | History & Physical Report ---
Date of Service November 23, 2020 Assessment & Plan (1) Acute GI bleeding: Mrs. Henderson is an 80 yo woman who presented to [facility] with two episodes of melana, found to have symptomatic anemia. - suspect secondary to an upper GI bleed (given melena, elevated BUN) vs. lower GI bleed - large hiatal hernia noted on a/p CT scan could be a risk factor for UGI bleed, as it may be a site of constriction (where esophagus/gastro junction pierces diaphragm) - continue PPI drip - started ceftriaxone 1 gram daily for antimicrobial prophylaxis in setting of acute gut bleed - recheck hgb q4H - transfuse if Hgb < 7 - blood consent signed and in chart - GI consulted, plan to scope patient in am. NPO in anticipation of procedure (2) Acute kidney injury: - baseline Cr 0.95 - Cr on admission 1.41, BUN at 83, ratio of 59 - suspect pre-renal origin - continue IVF - will hold ARB in setting of acute BEAR - trend BMP (3) Thrombocytosis: - platelets at 435 - suspect reactive to anemia/blood loss - trend CBC (4) Leukocytosis: - WBC at 18 k with neutrophil predom - etiology uncertain: reactive vs. hemoconcentration vs. secondary to infection - CXR neg for consolidation - continue ceftriaxone as above - trend CBC (5) Tachycardia: - likely functional (due to anemia) (6) HTN (hypertension): - history of - hold home ARB due to acute BEAR - continue home HCTZ + metoprolol (7) Cardiac pacemaker: - history of - follows with Dr. Hawthorne at [facility] Dispo: Med/Surg with tele DVT: chemo contraindication due to acute GI bleed Code: DNR/DNI Diet: NPO History of Present Illness Primary Care Provider: Bruce Zapata DO Mrs. Henderson is an 80 yo woman who presented to the emergency department for evaluation of black tarry stools. She had two episodes of melena earlier today - at the time, she and her were in [place] visiting their grandchildren. They drove home and immediately came in for evaluation. She did vomit x 1 this morning, although it was non-bloody and non-bilious. She endorses some mild, generalized abdominal pain. She has not had any fever/chills or diarrhea. She is not on a blood thinner, does not take aspirin. No etoh use. Only occasional NSAID use. She denies any previous episodes of melena. Prior to this episode, patient endorses dyspnea on exertion, which has been progressive over the past several weeks. It did get notably worse yesterday. There is never any associated chest pain, She endorses associated lightheadedness and generalized weakness. She has had colonoscopies int he past- she is unsure of when her most recent one was. Social Hx: She lives at home with her In the ED she was afebrile, HR was elevated to 119, BP was normal. Her Hgb was 6.2, MCV was 63, coags were normal, Hemoccult stool positive. WBC was elevated to 18 with neutrophil predom. Platelet elevated to 435. Electrolytes normal. Creatinine elevated to 1.41, up from baseline of 0.95. BUN increased to 83. Troponin detectable but not elevated. CXR was normal. Cat scan of abdomen and pelvis showed a large hiatal hernia, no other notable findings. She was given 1 liter of IV NSS, started on a protonix drip, given 20mg IV famotidine, Two units of packed RBCs were ordered and first was transfusing. Allergies Allergy/AdvReac Type Severity Reaction Status Date / Time amlodipine Allergy Intermediate RASH Verified 11/23/20 21:37 celecoxib Allergy Intermediate HIVES Verified 11/23/20 21:37 hydrochlorothiazide AdvReac Intermediate hyponatremi Verified 11/23/20 21:37 a Home Medications Medication Instructions Recorded Confirmed Type ascorbic acid (vitamin C) 500 mg 500 mg PO QAM tab 03/01/19 11/23/20 History tablet biotin 2,500 mcg capsule 2,500 mcg PO QAM cap 03/01/19 11/23/20 History calcium carbonate 600 mg (1,500 1 cap PO QAM cap 03/01/19 11/23/20 History mg)-vitamin D3 500 unit capsule cholecalciferol (vitamin D3) 25 2,000 units PO QAM tab 03/01/19 11/23/20 History mcg (1,000 unit) tablet dorzolamide 22.3 mg-timolol 6.8 1 drops OP HS ml 03/01/19 11/23/20 History mg/mL eye drops lutein 6 mg tablet 6 mg PO QAM tab 03/01/19 11/23/20 History metoprolol succinate 25 mg 25 mg PO QAM tab 03/01/19 11/23/20 History tablet,extended release 24 hr hydrochlorothiazide 12.5 mg capsule 12.5 mg PO QAM 06/14/19 11/23/20 History tafluprost (PF) 0.0015 % eye drops 1 drp OPHTHALMIC (EYE) HS 03/27/20 11/23/20 History in a dropperette cyclosporine 0.05 % eye drops in a 1 drp OP BID ea 11/21/20 11/23/20 History dropperette valsartan 320 mg tablet 320 mg PO DAILY tab 11/21/20 11/23/20 History ibuprofen 400 mg PO Q6H PRN 11/23/20 11/23/20 History mirabegron 25 mg PO QAM 11/23/20 11/23/20 History olmesartan 40 mg PO PM 11/23/20 11/23/20 History Past Med/Surg History Medical History Actinic keratosis Anemia Aortic atherosclerosis GERD (gastroesophageal reflux disease) Hearing loss, bilateral History of SCC (squamous cell carcinoma) of skin HTN (hypertension) Osteopenia Sick sinus syndrome Vitamin D deficiency Surgical History Cardiac pacemaker Followed by [facility] H/O Spinal surgery History of appendectomy History of arthroscopy of shoulder History of section History of hemorrhoidectomy History of hysterectomy with bilateral oophorectomy History of knee replacement, total bilateral History of permanent cardiac pacemaker placement History of rotator cuff surgery Family History Other No significant family history Denies family history of Ovarian cancer Breast cancer Colorectal cancer Social History Smoking Status: Never smoker Second Hand Exposure: No; Hx Alcohol Use: Yes Alcohol type: wine Alcohol Intake Frequency: 4 or More x per/Week Hx Substance Use: No Preferred Language: Sami Communication Ability: Effective Visual Impairment: Limited Hearing Ability: Use of Hearing Aid Conveyor Tender Required: No Beliefs That Will Affect Care: None marital status: Current Living Situation: Spouse current occupational status: 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 Other Information That Helps Us Care for You: No Feels Safe at Home: Yes Safety Concerns: Feels Safe At This Time Childhood Exposure to Second-Hand Smoke: No caffeine: No Dental Care, Regularly: Yes Physical Activity Frequency: 3-4 Times per Week Physical Activity Frequency Comment: walks Seatbelt Use: always Sunscreen Use: Yes Do you think of yourself as: straight/heterosexual Assistive Devices: Glasses Review of Systems Constitutional: + weakness Respiratory: + dyspnea on exertion Cardiovascular: + lightheadedness Gastrointestinal: + abdominal pain Physical Exam Constitutional: WD/WN, vitals as above cooperative; no acute distress Eyes: + anicteric sclerae ENMT: external ear and nose normal, oropharynx normal Neck: normal visual inspection and trachea midline Respiratory: normal respiratory effort, lungs clear to auscultation Cardiovascular: Rate/Rhythm: regular rhythm and + tachycardic Heart Sounds: normal S1, normal S2 and + murmur (systolic ejection ) Gastrointestinal (Abdomen): Inspection/Auscultation: abdomen normal to inspection and normal bowel sounds Percussion/Palpation: + abdomen tender (LLQ) and abdomen soft; no guarding and no hepatosplenomegaly Skin: no rashes, warm and dry Psychiatric: A+Ox3, euthymic affect Results & Data Results & Data ([facility]) Vital Signs (Past 12 Hours) Vital Signs Temp Pulse Resp BP Pulse Ox 11/23/20 22:40 37 C 113 H 20 125/72 96 11/23/20 22:25 115 H 25 H 121/67 96 11/23/20 22:21 119 H 26 H 96 11/23/20 22:20 112 H 27 H 115/66 96 11/23/20 22:15 104 H 26 H 122/66 96 11/23/20 22:11 117 H 27 H 96 11/23/20 22:10 37.0 C 112 H 28 H 129/68 95 11/23/20 22:06 102 H 27 H 124/71 97 11/23/20 22:01 107 H 23 96 11/23/20 22:00 100 H 25 H 117/58 L 97 11/23/20 21:55 37.1 C 119 H 23 141/60 H 95 11/23/20 21:51 119 H 34 H 96 11/23/20 21:50 119 H 25 H 123/75 95 11/23/20 21:45 117 H 24 137/66 94 11/23/20 21:41 119 H 23 121/79 94 11/23/20 21:40 37.1 C 92 H 29 H 121/79 96 11/23/20 21:38 114 H 26 H 119/67 93 11/23/20 21:30 116 H 25 H 96 11/23/20 21:20 114 H 27 H 96 11/23/20 21:17 118 H 27 H 128/59 L 96 11/23/20 21:10 117 H 22 97 11/23/20 21:09 106 H 23 143/63 H 98 11/23/20 21:00 104 H 24 97 11/23/20 20:51 117 H 23 11/23/20 20:31 116 H 26 H 96 11/23/20 20:30 116 H 27 H 162/66 H 95 11/23/20 20:28 108 H 26 H 134/67 96 11/23/20 20:20 109 H 18 96 11/23/20 20:10 115 H 20 97 11/23/20 20:00 110 H 24 99 11/23/20 19:49 96 H 22 95 11/23/20 19:32 111 H 27 H 110/63 99 11/23/20 19:16 36.3 C L 74 18 85/50 L 93 Supervising Physician Co-Signing Physician Notes Attending addendum: I have physically seen this patient, have supervised the medical residents activities, and agree with the H&P unless as otherwise noted. Assessment and Plan: Acute GI bleed- NPO Hemoglobin 6.2 upon admission Continue Protonix bolus/drip begun in the ED H&H q. 4 hours x 3 IV fluids Ceftriaxone 1 g IV daily Gastroenterology has been consulted by ED and is aware the patient Acute kidney injury- Creatinine 1.41 upon admission, with baseline 0.95 Continue IV fluids Hold HCTZ and losartan for now Repeat laboratories in a.m. Remaining orders and notations as noted Resident Activity Tracking Resident Involvement: Resident Care Provided Care Provided: Adult Hospital Medicine
[2020-11-24] MEDS ORDERED: ONDANSETRON INJ 2 MG/ML 2 ML VIAL IV PRN (00:59)
[2020-11-24] MEDS ORDERED: SODIUM CHLORIDE 0.9% 250 ML IV PRN (01:48)
[2020-11-24] MEDS: PANTOprazole 40 MG in DEXTROSE 5% 100 ML IV SCH ×4 (02:08→17:23)
[2020-11-24 02:46] LABS: Hematocrit (blood only) 22.2 % (37-47); Hemoglobin 6.9 g/dL (12.0-16.0)
[2020-11-24] MEDS ORDERED: cefTRIAXone SODIUM 1,000 MG in DEXTROSE 5% 50 ML IV SCH (05:00)
--- NOTE | 2020-11-24 06:51 | Hospitalist Progress Note ---
Date of Service November 24, 2020 Assessment & Plan Admission and Anticipated Discharge Date Admission Date: November 23, 2020 Results & Data Results & Data ([facility]) Vital Signs (Past 12 Hours) Vital Signs Temp Pulse Pulse Resp BP BP Pulse Ox 11/24/20 06:00 36.7 C 95 H 18 119/67 96 11/24/20 05:56 36.7 C 95 H 18 119/67 96 11/24/20 04:56 37.0 C 97 H 18 138/73 93 11/24/20 03:56 36.6 C 100 H 16 127/68 96 11/24/20 03:30 36.7 C 97 H 18 139/78 97 11/24/20 03:11 37.2 C 98 H 18 147/77 H 96 11/24/20 02:49 36.8 C 97 H 18 131/68 94 11/24/20 01:48 111 H 11/24/20 00:59 36.6 C 114 H 18 156/75 H 96 11/24/20 00:20 37 C 111 H 20 124/68 98 11/23/20 23:40 37 C 108 H 20 107/71 94 11/23/20 22:40 37 C 113 H 20 125/72 96 11/23/20 22:25 115 H 25 H 121/67 96 11/23/20 22:21 119 H 26 H 96 11/23/20 22:20 112 H 27 H 115/66 96 11/23/20 22:15 104 H 26 H 122/66 96 11/23/20 22:11 117 H 27 H 96 11/23/20 22:10 37.0 C 112 H 28 H 129/68 95 11/23/20 22:06 102 H 27 H 124/71 97 11/23/20 22:01 107 H 23 96 11/23/20 22:00 100 H 25 H 117/58 L 97 11/23/20 21:55 37.1 C 119 H 23 141/60 H 95 11/23/20 21:51 119 H 34 H 96 11/23/20 21:50 119 H 25 H 123/75 95 11/23/20 21:45 117 H 24 137/66 94 11/23/20 21:41 119 H 23 121/79 94 11/23/20 21:40 37.1 C 92 H 29 H 121/79 96 11/23/20 21:38 114 H 26 H 119/67 93 11/23/20 21:30 116 H 25 H 96 11/23/20 21:20 114 H 27 H 96 11/23/20 21:17 118 H 27 H 128/59 L 96 11/23/20 21:10 117 H 22 97 11/23/20 21:09 106 H 23 143/63 H 98 11/23/20 21:00 104 H 24 97 11/23/20 20:51 117 H 23 11/23/20 20:31 116 H 26 H 96 11/23/20 20:30 116 H 27 H 162/66 H 95 11/23/20 20:28 108 H 26 H 134/67 96 11/23/20 20:20 109 H 18 96 11/23/20 20:10 115 H 20 97 11/23/20 20:00 110 H 24 99 11/23/20 19:49 96 H 22 95 11/23/20 19:32 111 H 27 H 110/63 99 11/23/20 19:16 36.3 C L 74 18 85/50 L 93
[2020-11-24 07:46] LABS: Basophils # (auto) 0.03 K/uL (0-0.2); Basophils % (auto) 0.2 %; Hematocrit (blood only) 24.3 % (37-47); Hemoglobin 7.8 g/dL (12.0-16.0); Immature Granulocytes # (auto) 0.03 K/uL (0.00-0.02); Immature Granulocytes % (auto) 0.2 %; Lymphocytes # (auto) 1.42 K/uL (1.2-3.4); Lymphocytes % (auto) 9.1 %; Mean Corpuscular Hemoglobin 22.6 pg (25-34); Mean Corpuscular Hgb Conc 32.1 g/dL (32-36); Mean Corpuscular Volume 70.4 fL (80-100); Mean Platelet Volume 8.2 fL (7.4-10.4); Monocytes # (auto) 1.71 K/uL (0.11-0.59); Neutrophils # (auto) 12.36 K/uL (1.4-6.5); Neutrophils % (auto) 79.5 %; Platelet Count 319 K/uL (130-400); RDW Coefficient of Variation 23.8 % (11.5-14.5); Red Blood Count 3.45 M/uL (4.2-5.4); White Blood Count 15.55 K/uL (4.8-10.8)
[2020-11-24 08:04] LABS: Anisocytosis Present; Polychromasia 1+; Target Cells 1+
--- NOTE | 2020-11-24 08:09 | CT Scan Report ---
CT SCAN OF THE ABDOMEN AND PELVIS WITHOUT CONTRAST CLINICAL HISTORY: abd pain, gi bleed, hypotension COMPARISON STUDY: 05/04/2017 TECHNIQUE: CT scan of the abdomen and pelvis was performed from the lung bases to the proximal femurs . Images are reviewed in the axial, sagittal, and coronal planes. IV contrast was not administered fo r this examination. A dose lowering technique was utilized adhering to the principles of ALARA. CT DOSE: 300.45 mGy.cm FINDINGS: Lower chest: There is a large hiatal hernia. Pacemaker electrodes are visualized. There are left lowe r lobe atelectatic changes. Liver: The unenhanced liver is normal in size, contour, and attenuation. There is no intrahepatic gudelia iary ductal dilatation. Gallbladder: Unremarkable. Spleen: Normal in size and attenuation. Pancreas: Unremarkable. Adrenal glands: Unremarkable. Kidneys: No renal, ureteral, or bladder calculi are visualized. Bowel: There are no transition zones indicate bowel obstruction. There is colonic diverticulosis. The re is no evidence of acute diverticulitis. By history the appendix is surgically absent. Peritoneum: There is no intraperitoneal free air or abdominal ascites. There are small fat-containing umbilical hernia Vasculature: The abdominal aorta is normal in course and caliber. Adenopathy: None. Pelvic viscera: The uterus is surgically absent Skeletal structures: Postsurgical changes are present within the spine. There is a mild to moderate T 12 compression deformity. IMPRESSION: 1. No evidence of bowel obstruction. No evidence of free air 2. Colonic diverticulosis. No evidence of acute diverticulitis. 3. No acute inflammatory changes identified on this noncontrast study. 4. Large hiatal hernia ACT 112: Negative or not required by law. Electronically signed by: Surya Mayfield M.D. 11/24/2020 8:08 AM
--- NOTE | 2020-11-24 08:29 | XRay Report ---
XR chest 1V portable CLINICAL HISTORY: hypotension COMPARISON STUDY: March 28, 2020 FINDINGS: No pneumothorax. No pleural effusion. Minimal atelectasis or scarring is seen at the left base. Diffuse prominence of pulmonary interstitiu m is seen bilaterally. Bilateral lungs are slightly hyperinflated. Cardiomediastinal silhouette is prominent. Large hiatal hernia with air-fluid level is again seen. No significant pulmonary vascular congestion.. Aorta is calcified. Osseous structures: Osteopenia. Degenerative changes of bilateral shoulders. Lower thoracic vertebra l bodies are not well seen. Stable position of left-sided dual-lead pacemaker with battery pack partially obscuring left lung par enchyma. IMPRESSION: 1. Mild hyperinflation, COPD pattern. 2. Minimal atelectasis/scarring at the left base. 3. Large hiatal hernia. 4. Atherosclerosis. ACT 112: Negative or not required by law. The above report was generated using voice recognition software. It may contain grammatical, syntax o r spelling errors. Electronically signed by: aKndi Tucker DO 11/24/2020 8:28 AM
[2020-11-24 08:30] LABS: BUN Creatinine Ratio 64.6 (10-20); Calcium 8.5 mg/dl (8.5-10.1); Creatinine Clr Calc Pharmacy 50.1 ml/min; Est GFR (African American) 78.4 ml/min; Est GFR (Non-African American) 67.6 ml/min; Potassium 3.9 mmol/L (3.5-5.1)
[2020-11-24] MEDS ORDERED: NON-FORMULARY MEDICATION (Lutein 6 mg tablet) PO SCH (09:00)
[2020-11-24] MEDS ORDERED: hydroCHLOROthiazide 25 MG TAB PO SCH (09:00)
[2020-11-24] MEDS ORDERED: METOPROLOL SUCC 25MG EXT REL TAB PO SCH (09:00)
--- NOTE | 2020-11-24 09:21 | Gastrointestinal Consultation ---
Date of Consultation November 24, 2020 Assessment & Plan (1) Anemia: (2) Acute GI bleeding: Concern for upper GI bleed given melena and significant symptomatic anemia upon presentation to the ED. -Keep NPO for EGD today. -Continue Pantoprazole gtt for now. Will make further recommendations regarding PPI pending results of EGD. -Continue to monitor H/H. -Supportive care per primary team. Thank you for allowing us to participate in the care of this patient. If you should have any further questions or concerns, do not hesitate to contact us at extension [phone] or [phone]. Supervising Physician Co-Signing Physician Notes I personally evaluated the patient and agree with the findings as documented by Yesenia Dove, PAC Exam: abd: soft, nt, nd Proceed with EGD. risks/benefits and procedure discussed with patient, who agrees to proceed History of Present Illness Reason for Consultation: Anemia, melena Attending Physician: Jose Armando Orellana DO History of Present Illness Patient is an 80 yo female with a PMH of HTN, GERD, & lumbar stenosis who presented to [facility] with dyspnea on exertion, melena, & frequent urges to have a bowel movemnt. The patient notes that she was traveling to [place] over the weekend to visit her grandchildren. She reports she noted that she was very short of breath with minimal exertion. She then began to notice on the way home from the trip that she was having frequent urges to have a bowel movement. She notes that she experienced 5-6 episodes of dark, tarry stool during the trip home. When they arrived back to [place], she presented to the emergency department. Her H/H was noted to be 6.2/20.6. Stool was heme positive. She was transfused PRBCs and now with an H/H of 7.8/24.3. She notes she is tired because she keeps waking up to have a bowel movement. She den ies abdominal pain or cramping. No other reported symptoms to include heartburn or acid reflux at present. She denies any NSAID use. She does use Tylenol for arthritis pain. She is a nonsmoker. She denies personal or family history of GI issues. She is currently on IV PPI therapy. Allergies Allergy/AdvReac Type Severity Reaction Status Date / Time amlodipine Allergy Intermediate RASH Verified 11/23/20 21:37 celecoxib Allergy Intermediate HIVES Verified 11/23/20 21:37 hydrochlorothiazide AdvReac Intermediate hyponatremi Verified 11/23/20 21:37 a Home Medications Medication Instructions Recorded Confirmed Type ascorbic acid (vitamin C) 500 mg 500 mg PO QAM tab 03/01/19 11/23/20 History tablet biotin 2,500 mcg capsule 2,500 mcg PO QAM cap 03/01/19 11/23/20 History calcium carbonate 600 mg (1,500 1 cap PO QAM cap 03/01/19 11/23/20 History mg)-vitamin D3 500 unit capsule cholecalciferol (vitamin D3) 25 2,000 units PO QAM tab 03/01/19 11/23/20 History mcg (1,000 unit) tablet dorzolamide 22.3 mg-timolol 6.8 1 drops OP HS ml 03/01/19 11/23/20 History mg/mL eye drops lutein 6 mg tablet 6 mg PO QAM tab 03/01/19 11/23/20 History metoprolol succinate 25 mg 25 mg PO QAM tab 03/01/19 11/23/20 History tablet,extended release 24 hr hydrochlorothiazide 12.5 mg capsule 12.5 mg PO QAM 06/14/19 11/23/20 History tafluprost (PF) 0.0015 % eye drops 1 drp OPHTHALMIC (EYE) HS 03/27/20 11/23/20 History in a dropperette cyclosporine 0.05 % eye drops in a 1 drp OP BID ea 11/21/20 11/23/20 History dropperette valsartan 320 mg tablet 320 mg PO DAILY tab 11/21/20 11/23/20 History ibuprofen 400 mg PO Q6H PRN 11/23/20 11/23/20 History mirabegron 25 mg PO QAM 11/23/20 11/23/20 History olmesartan 40 mg PO PM 11/23/20 11/23/20 History Patient History Medical History (Updated 11/24/20 @ 00:29 by Tiffani Tenorio MD) Actinic keratosis Anemia Aortic atherosclerosis GERD (gastroesophageal reflux disease) Hearing loss, bilateral History of SCC (squamous cell carcinoma) of skin HTN (hypertension) Osteopenia Sick sinus syndrome Vitamin D deficiency Surgical History (Updated 11/21/20 @ 10:49 by Bruce Zapata DO) Cardiac pacemaker Followed by [facility] H/O Spinal surgery History of appendectomy History of arthroscopy of shoulder History of section History of hemorrhoidectomy History of hysterectomy with bilateral oophorectomy History of knee replacement, total bilateral History of permanent cardiac pacemaker placement History of rotator cuff surgery Family History Other No significant family history Denies family history of Ovarian cancer Breast cancer Colorectal cancer Social History Smoking Status: Never smoker Second Hand Exposure: No; Hx Alcohol Use: Yes Alcohol type: wine Alcohol Intake Frequency: 4 or More x per/Week Hx Substance Use: No Preferred Language: Portuguese Communication Ability: Effective Visual Impairment: Limited Hearing Ability: Use of Hearing Aid Cio Required: No Beliefs That Will Affect Care: None marital status: Current Living Situation: Spouse current occupational 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 Other Information That Helps Us Care for You: No Feels Safe at Home: Yes Safety Concerns: Feels Safe At This Time Childhood Exposure to Second-Hand Smoke: No caffeine: No Dental Care, Regularly: Yes Physical Activity Frequency: 3-4 Times per Week Physical Activity Frequency Comment: walks Seatbelt Use: always Sunscreen Use: Yes Do you think of yourself as: straight/heterosexual Assistive Devices: None Review of Systems Constitutional: + fatigue; no fever and no chills Respiratory: + dyspnea on exertion; no cough Cardiovascular: no chest pain Gastrointestinal: + change in bowel habits, + diarrhea/loose stools and + melena; no abdominal pain, no nausea, no vomiting and no coffee ground emesis Musculoskeletal: + joint pain Psychiatric: no problem reported Physical Exam Constitutional: well developed Respiratory: normal respiratory effort Cardiovascular: Extremities: no edema Gastrointestinal (Abdomen): normal bowel sounds, soft, nontender, no hepatosplenomegaly Musculoskeletal: Head/Neck/Chest: normocephalic Psychiatric: A+Ox3, euthymic affect Results & Data ([facility]) Vital Signs (Past 12 Hours) Vital Signs Temp Pulse Pulse Resp BP BP Pulse Ox 11/24/20 06:00 36.7 C 95 H 18 119/67 96 11/24/20 05:56 36.7 C 95 H 18 119/67 96 11/24/20 04:56 37.0 C 97 H 18 138/73 93 11/24/20 03:56 36.6 C 100 H 16 127/68 96 11/24/20 03:30 36.7 C 97 H 18 139/78 97 11/24/20 03:11 37.2 C 98 H 18 147/77 H 96 11/24/20 02:49 36.8 C 97 H 18 131/68 94 11/24/20 01:48 111 H 11/24/20 00:59 36.6 C 114 H 18 156/75 H 96 11/24/20 00:20 37 C 111 H 20 124/68 98 11/23/20 23:40 37 C 108 H 20 107/71 94 11/23/20 22:40 37 C 113 H 20 125/72 96 11/23/20 22:25 115 H 25 H 121/67 96 11/23/20 22:21 119 H 26 H 96 11/23/20 22:20 112 H 27 H 115/66 96 11/23/20 22:15 104 H 26 H 122/66 96 11/23/20 22:11 117 H 27 H 96 11/23/20 22:10 37.0 C 112 H 28 H 129/68 95 11/23/20 22:06 102 H 27 H 124/71 97 11/23/20 22:01 107 H 23 96 11/23/20 22:00 100 H 25 H 117/58 L 97 11/23/20 21:55 37.1 C 119 H 23 141/60 H 95 11/23/20 21:51 119 H 34 H 96 11/23/20 21:50 119 H 25 H 123/75 95 11/23/20 21:45 117 H 24 137/66 94 11/23/20 21:41 119 H 23 121/79 94 11/23/20 21:40 37.1 C 92 H 29 H 121/79 96 11/23/20 21:38 114 H 26 H 119/67 93 11/23/20 21:30 116 H 25 H 96 PG Care Time/CCT Total # of Minutes Spent Total Time Spent with Patient: Total time spent is greater than 50% in coordination of care (as documented) at patient's floor/unit and/or counseling patient: Coding Level of Care Code 85973 Initial Inpt Care Lvl 3 Diagnoses Anemia D64.9 Acute GI bleeding K92.2
[2020-11-24] MEDS: MIRABEGRON ER 25 MG TAB PO SCH (09:36)
[2020-11-24 12:13] LABS: Basophils # (auto) 0.04 K/uL (0-0.2); Basophils % (auto) 0.3 %; Eosinophils # (auto) 0.01 K/uL (0-0.5); Eosinophils % (auto) 0.1 %; Hematocrit (blood only) 23.7 % (37-47); Hemoglobin 7.7 g/dL (12.0-16.0); Immature Granulocytes # (auto) 0.05 K/uL (0.00-0.02); Immature Granulocytes % (auto) 0.3 %; Lymphocytes # (auto) 1.72 K/uL (1.2-3.4); Lymphocytes % (auto) 10.8 %; Mean Corpuscular Hemoglobin 22.4 pg (25-34); Mean Corpuscular Hgb Conc 32.5 g/dL (32-36); Mean Corpuscular Volume 69.1 fL (80-100); Mean Platelet Volume 8.1 fL (7.4-10.4); Monocytes # (auto) 1.53 K/uL (0.11-0.59); Monocytes % (auto) 9.6 %; Neutrophils # (auto) 12.63 K/uL (1.4-6.5); Neutrophils % (auto) 78.9 %; Platelet Count 312 K/uL (130-400); RDW Coefficient of Variation 23.8 % (11.5-14.5); RDW Standard Deviation 60.1 fL (36.4-46.3); Red Blood Count 3.43 M/uL (4.2-5.4); White Blood Count 15.98 K/uL (4.8-10.8)
[2020-11-24 12:44] LABS: Microcytosis Present; Polychromasia 1+; Target Cells 1+
--- NOTE | 2020-11-24 12:48 | Medical Student Progress Note ---
Date of Service November 24, 2020 Assessment & Plan (1) Acute GI bleeding: - Suspected GI bleed given melena and anemia on presentation, likely upper GI due to BUN elevation and melena - Hgb 6.2 on admission -> 7.7 (11/24) - Endoscopy showed 1 angioectasia in the stomach - Per GI recommendations: Protonix 40 mg bid - CBC q12hrs - advance diet to clears tonight, regular diet tomorrow if hgb stable - discontinue ceftriaxone prophylaxis (2) Acute kidney injury: - Most likely pre renal etiology given improvement with IV fluids - Creatinine improved today 1.41 (11/23) -> .81 (11/24) - Hold home valsartan (3) HTN (hypertension): - Hold home losartan, HCTZ - Continue home metoprolol (4) Leukocytosis: - WBC at 15.6 - trend CBC (5) Cardiac pacemaker: - history of - follows with Dr. Hawthorne at [facility] [place], [place] Dispo: Med/Surg with tele DVT: chemo contraindication due to acute GI bleed Code: DNR/DNI Diet: clear diet Admission and Anticipated Discharge Date Admission Date: November 23, 2020 Supervising Attestation I personally examined the patient and verified all graham points of history and exam, discussed case, and agree with decision making with A Eliot MS2 Feeling pretty good after scope. Mostly just wonders when she will be on to get home. Discussed situation with patient and . Answered all questions to the best my ability. Vitals noted, in general she is awake and alert pleasant no distress. HEENT normocephalic atraumatic mucous membranes moist. Breathing unlabored no accessory muscle use good effort. Skin shows no rashes no pallor or icterus. Upper GI bleed with subsequent acute blood loss anemia requiring 2 units transfusionappears to been related to gastric AVM, which has now been cauterized. Consider capsule endoscopy to assess overall burden of AVMs, versus watchful waiting with periodic hemoglobins as an outpatient. Continue acid suppression, advance diet as tolerated. Probably would benefit from iron supplementation as well AKIrelated to hypoperfusion from her anemiaimproved with transfusion Leukocytosis, and (now resolved) thrombocytosisno signs or symptoms of infection, suspect reactive. Subjective Mrs. Henderson is an 80 year old female who presented to the ED after 2 episodes of dark stools. She has noticed that she has been more tired in the past few weeks and has been experiencing some shortness of breath on exertion. In the ED, she was found to have a hemoglobin of 6.2 and received two units of packed RBCs. Overall, she feels well this morning. There were no significant overnight events. She denies any abdominal pain, nausea, vomiting, dizziness or lightheadedness. She was able to get up to use the bathroom with assistance. She has had one bowel movement today that was not black/tarry. Review of Systems Constitutional: + fatigue; no fever Respiratory: no cough and no dyspnea Cardiovascular: no chest pain, no lightheadedness and no syncope Gastrointestinal: no abdominal pain, no nausea and no vomiting Physical Exam Constitutional: no acute distress Respiratory: normal respiratory effort, lungs clear to auscultation Cardiovascular: RRR, no murmur, no edema Extremities: normal capillary refill Gastrointestinal (Abdomen): normal bowel sounds, soft, nontender, no hepatosplenomegaly Musculoskeletal: no cyanosis or clubbing, extremities motor strength 5/5 Skin: no rashes, warm and dry Results & Data ([facility]) Vital Signs (Past 12 Hours) Vital Signs Temp Pulse Pulse Resp BP BP Pulse Ox 11/24/20 08:00 97 H 11/24/20 06:00 36.7 C 95 H 18 119/67 96 11/24/20 05:56 36.7 C 95 H 18 119/67 96 11/24/20 04:56 37.0 C 97 H 18 138/73 93 11/24/20 03:56 36.6 C 100 H 16 127/68 96 11/24/20 03:30 36.7 C 97 H 18 139/78 97 11/24/20 03:11 37.2 C 98 H 18 147/77 H 96 11/24/20 02:49 36.8 C 97 H 18 131/68 94 11/24/20 01:48 111 H 11/24/20 00:59 36.6 C 114 H 18 156/75 H 96
--- NOTE | 2020-11-24 14:13 | Anesthesiology Consultation ---
Date of Service November 24, 2020 Assessment & Plan ASA ASA3 Proposed Anesthesia Anesthesia Type: MAC Risk / Benefits Reviewed With: PT / POA / Parent / Guardian, Accepts Plan and Informed Consent Obtained History Surgery Operation Date: 11/24/20 16:45 Proposed Procedures p Esophagogastroduodenoscopy Dr. Carrillo - Diego Carrillo MD Height/Weight Height: 5 ft 6 in Weight: 61.4 kg Allergies Allergy/AdvReac Type Severity Reaction Status Date / Time amlodipine Allergy Intermediate RASH Verified 11/23/20 21:37 celecoxib Allergy Intermediate HIVES Verified 11/23/20 21:37 hydrochlorothiazide AdvReac Intermediate hyponatremi Verified 11/23/20 21:37 a Medications Home Medications Medication Instructions Recorded Confirmed Last Taken ascorbic acid (vitamin C) 500 mg 500 mg PO QAM tab 03/01/19 11/23/20 11/23/20 tablet biotin 2,500 mcg capsule 2,500 mcg PO QAM cap 03/01/19 11/23/20 11/23/20 calcium carbonate 600 mg (1,500 1 cap PO QAM cap 03/01/19 11/23/20 11/23/20 mg)-vitamin D3 500 unit capsule cholecalciferol (vitamin D3) 25 2,000 units PO QAM tab 03/01/19 11/23/20 11/23/20 mcg (1,000 unit) tablet dorzolamide 22.3 mg-timolol 6.8 1 drops OP HS ml 03/01/19 11/23/20 11/22/20 mg/mL eye drops lutein 6 mg tablet 6 mg PO QAM tab 03/01/19 11/23/20 11/23/20 metoprolol succinate 25 mg 25 mg PO QAM tab 03/01/19 11/23/20 11/23/20 tablet,extended release 24 hr hydrochlorothiazide 12.5 mg capsule 12.5 mg PO QAM 06/14/19 11/23/20 11/23/20 tafluprost (PF) 0.0015 % eye drops 1 drp OPHTHALMIC (EYE) HS 03/27/20 11/23/20 11/22/20 in a dropperette cyclosporine 0.05 % eye drops in a 1 drp OP BID ea 11/21/20 11/23/20 11/23/20 dropperette valsartan 320 mg tablet 320 mg PO DAILY tab 11/21/20 11/23/20 Unknown ibuprofen 400 mg PO Q6H PRN 11/23/20 11/23/20 11/22/20 400 mg mirabegron 25 mg PO QAM 11/23/20 11/23/20 11/23/20 olmesartan 40 mg PO PM 11/23/20 11/23/20 11/22/20 Active Medications Generic Name Dose Route Start Last Admin Trade Name Freq PRN Reason Stop Dose Admin Pantoprazole Sodium 40 mg/ 100 mls @ 20 mls/hr 11/23/20 20:12 11/24/20 13:45 Dextrose IV 12/23/20 20:11 0 mg/hr Q5H CHRIST 0 mls/hr Infusion 8 MG/HR Metoprolol Succinate 25 mg 11/24/20 09:00 11/24/20 09:36 Metoprolol Succ 25mg Ext Rel Tab PO 12/24/20 08:59 25 mg QAM CHRIST Administration Mirabegron 25 mg 11/24/20 09:00 11/24/20 09:36 Mirabegron Er 25 Mg Tab PO 12/24/20 08:59 25 mg QAM CHRIST Administration Miscellaneous 1 ea 11/24/20 09:00 11/24/20 09:33 Cyclosporine Op: Order Awaiting Action N/A 12/24/20 08:59 Not Given DAILY CHRIST Miscellaneous 1 ea 11/24/20 09:00 11/24/20 09:33 Tafluprost [Zioptan (Pf)]: Order Awaiting Action N/A 12/24/20 08:59 Not Given DAILY CHRIST NPO Date Last Intake of Fluids: 11/24/20 Time Last Intake of Fluids: 08:30 Last Intake of Fluids Comment: sip with med Date Last Intake of Solids: 11/23/20 Time Last Intake of Solids: 23:59 Past Medical History Medical History Actinic keratosis Anemia Aortic atherosclerosis GERD (gastroesophageal reflux disease) Hearing loss, bilateral History of SCC (squamous cell carcinoma) of skin HTN (hypertension) Osteopenia Sick sinus syndrome Vitamin D deficiency Exercise / Class Metabolic Activity II 4-5 Yardwork/Stairs/Walk up hill Past Family History Family History Other No significant family history Denies family history of Ovarian cancer Breast cancer Colorectal cancer Past Surgical History Surgical History Cardiac pacemaker Followed by [facility] H/O Spinal surgery History of appendectomy History of arthroscopy of shoulder History of section History of hemorrhoidectomy History of hysterectomy with bilateral oophorectomy History of knee replacement, total bilateral History of permanent cardiac pacemaker placement History of rotator cuff surgery Past Anesthesia History No Hx of Anesthesia Complications and No Family Hx of Anesthesia Complications History of PONV No Hx of PONV and No Hx of Motion Sickness Social History Smoking Status: Never smoker Hx Alcohol Use: Yes Alcohol type: wine alcohol intake frequency: a few times a week Hx Substance Use: No Review of Systems denies fever/cough/ colds/ chest pain/ SOB/ GIOVANNI denies GIOVANNI Physical Exam Vital Signs Last Vital Signs Temp 36.8 C 11/24/20 13:54 Pulse 83 11/24/20 13:54 Resp 16 11/24/20 13:54 BP 147/78 H 11/24/20 13:54 Pulse Ox 95 11/24/20 13:54 ENMT Mouth: no TMJ abnormality and no dentition abnormality Thyromental Distance: > or= 3.5 Finger Breadths Mallampati Class: II Neck neck extension not limited Respiratory normal respiratory effort; no respiratory distress Auscultation: lungs clear to auscultation bilaterally Cardiovascular Rate/Rhythm: regular rate and regular rhythm Neurologic moves all extremities Psychiatric Orientation: alert and oriented x 3 Testing Laboratory Results 11/24/20 11:49 11/24/20 07:24 PT 10.5 Seconds (9.0-12.0) 11/23/20 21:12 INR 1.0 (0.9-1.1) 11/23/20 21:12 APTT 21.4 Seconds (21.0-31.0) 11/23/20 21:12 Blood Type O Positive 11/23/20 20:00 Antibody Screen NEGATIVE 11/23/20 20:00
--- NOTE | 2020-11-24 14:15 | Electrocardiogram Report ---
Test Reason : Blood Pressure : / mmHG Vent. Rate : 110 BPM Atrial Rate : 110 BPM P-R Int : 000 ms QRS Dur : 138 ms QT Int : 402 ms P-R-T Axes : 000 -70 104 degrees QTc Int : 544 ms Poor data quality, interpretation may be adversely affected Ventricular-paced rhythm Abnormal ECG When compared with ECG of 06-NOV-2015 22:11, Vent. rate has increased BY 36 BPM Confirmed by Se Cardozo ([id number]) on 11/24/2020 2:14:32 PM Referred By: REFERRED SELF Confirmed By:Se Cardozo
[2020-11-24] MEDS ORDERED: LIDOCAINE 2% 2 ML VIAL/AMP(20MG/ML) INFIL ONE (14:47)
[2020-11-24] MEDS ORDERED: PROPOFOL IV EMULSION 10 MG/ML 20 ML VIAL IV ONE (14:47)
--- NOTE | 2020-11-24 15:19 | GI REPORT ---
Patient Name: Kirby Henderson Procedure Date: 11/24/2020 2:52 PM Date of : 1940 Admit Type: Inpatient Age: 80 Gender: Female Attending MD: Diego Carrillo MD Procedure: Upper GI endoscopy Providers: Diego Carrillo MD Referring MD: Jose Armando Orellana Indications: Melena Medicines: Monitored Anesthesia Care Complications: No immediate complications. Estimated blood loss: None. Estimated Blood Loss: Estimated blood loss: none. Procedure: Pre-Anesthesia Assessment: - Prior Anticoagulants: The patient has taken no previous anticoagulant or antiplatelet agents. - ASA Grade Assessment: II - A patient with mild systemic disease. After obtaining informed consent, the endoscope was passed under direct vision. Throughout the procedure, the patient's blood pressure, pulse, and oxygen saturations were monitored continuously. The Endoscope was introduced through the mouth, and advanced to the second part of duodenum. The upper GI endoscopy was accomplished without difficulty. The patient tolerated the procedure well. Findings: The examined esophagus was normal. Red blood was found in the gastric body along with hematin, this was washed out and suctioned. A single angioectasia with bleeding was found in the gastric body. Coagulation for hemostasis using bipolar probe was successful. For hemostasis, one hemostatic clip was successfully placed. There was no bleeding at the end of the procedure. Estimated blood loss: none. The duodenal bulb and second portion of the duodenum were normal. Impression: - Normal esophagus. - Red blood in the gastric body. - A single bleeding angioectasia in the stomach. Treated with bipolar cautery. Clip was placed. - No specimens collected. Recommendation: - Return patient to hospital [facility] for ongoing care. - Clear liquid diet today. advance tomorrow if hgb stable. -protonix 40 mg bid Diego Carrillo MD 11/24/2020 3:18:47 PM This report has been signed electronically. Note Initiated On: 11/24/2020 2:52 PM Number of Addenda: 0 I attest to the content of the Intraoperative Record and orders documented therein, exceptions below {[id number]}
--- NOTE | 2020-11-24 15:44 | Anesthesiology Progress Note ---
Date of Service November 24, 2020 Anesthesia Post Procedure Vital Signs Vital Signs: Temp Pulse Pulse Resp BP BP BP 11/24/20 15:29 79 16 127/65 11/24/20 15:15 75 16 127/51 L 11/24/20 13:54 36.8 C 83 16 147/78 H 11/24/20 08:00 97 H 11/24/20 06:00 36.7 C 95 H 18 119/67 11/24/20 05:56 36.7 C 95 H 18 119/67 11/24/20 04:56 37.0 C 97 H 18 138/73 11/24/20 03:56 36.6 C 100 H 16 127/68 11/24/20 03:30 36.7 C 97 H 18 139/78 11/24/20 03:11 37.2 C 98 H 18 147/77 H 11/24/20 02:49 36.8 C 97 H 18 131/68 11/24/20 01:48 111 H 11/24/20 00:59 36.6 C 114 H 18 156/75 H 11/24/20 00:20 37 C 111 H 20 124/68 11/23/20 23:40 37 C 108 H 20 107/71 11/23/20 22:40 37 C 113 H 20 125/72 11/23/20 22:25 115 H 25 H 121/67 11/23/20 22:21 119 H 26 H 11/23/20 22:20 112 H 27 H 115/66 11/23/20 22:15 104 H 26 H 122/66 11/23/20 22:11 117 H 27 H 11/23/20 22:10 37.0 C 112 H 28 H 129/68 11/23/20 22:06 102 H 27 H 124/71 11/23/20 22:01 107 H 23 11/23/20 22:00 100 H 25 H 117/58 L 11/23/20 21:55 37.1 C 119 H 23 141/60 H 11/23/20 21:51 119 H 34 H 11/23/20 21:50 119 H 25 H 123/75 11/23/20 21:45 117 H 24 137/66 11/23/20 21:41 119 H 23 121/79 11/23/20 21:40 37.1 C 92 H 29 H 121/79 11/23/20 21:38 114 H 26 H 119/67 11/23/20 21:30 116 H 25 H 11/23/20 21:20 114 H 27 H 11/23/20 21:17 118 H 27 H 128/59 L 11/23/20 21:10 117 H 22 11/23/20 21:09 106 H 23 143/63 H 11/23/20 21:00 104 H 24 11/23/20 20:51 117 H 23 11/23/20 20:31 116 H 26 H 11/23/20 20:30 116 H 27 H 162/66 H 11/23/20 20:28 108 H 26 H 134/67 11/23/20 20:20 109 H 18 11/23/20 20:10 115 H 20 11/23/20 20:00 110 H 24 11/23/20 19:49 96 H 22 11/23/20 19:32 111 H 27 H 110/63 11/23/20 19:16 36.3 C L 74 18 85/50 L Pulse Ox 11/24/20 15:29 96 11/24/20 15:15 97 11/24/20 13:54 95 11/24/20 08:00 11/24/20 06:00 96 11/24/20 05:56 96 11/24/20 04:56 93 11/24/20 03:56 96 11/24/20 03:30 97 11/24/20 03:11 96 11/24/20 02:49 94 11/24/20 01:48 11/24/20 00:59 96 11/24/20 00:20 98 11/23/20 23:40 94 11/23/20 22:40 96 11/23/20 22:25 96 11/23/20 22:21 96 11/23/20 22:20 96 11/23/20 22:15 96 11/23/20 22:11 96 11/23/20 22:10 95 11/23/20 22:06 97 11/23/20 22:01 96 11/23/20 22:00 97 11/23/20 21:55 95 11/23/20 21:51 96 11/23/20 21:50 95 11/23/20 21:45 94 11/23/20 21:41 94 11/23/20 21:40 96 06/20/21 21:38 93 11/23/20 21:30 96 11/23/20 21:20 96 11/23/20 21:17 96 11/23/20 21:10 97 11/23/20 21:09 98 11/23/20 21:00 97 11/23/20 20:51 11/23/20 20:31 96 11/23/20 20:30 95 11/23/20 20:28 96 11/23/20 20:20 96 11/23/20 20:10 97 11/23/20 20:00 99 11/23/20 19:49 95 11/23/20 19:32 99 11/23/20 19:16 93 Transfer of Care Handoff Completed per policy Notes Mental Status: alert / awake / arousable Patient Amnestic to Procedure: Yes Nausea / Vomiting: adequately controlled Pain: adequately controlled Airway Patency, RR, SpO2: stable & adequate BP & HR: stable & adequate Hydration State: stable & adequate Anesthetic Complications: no major complications apparent
--- NOTE | 2020-11-24 17:47 | Billing Data ---
Date of Service November 24, 2020 Coding Level of Care Code 66806 Subseq Hosp Care Lvl 3
[2020-11-24] MEDS ORDERED: DORZOLAMIDE/TIMOLOL 22.3/6.8MG/ML 10 ML BTL OP SCH (21:00)
[2020-11-24] MEDS: PANTOprazole 40 MG in SYRINGE 0 ML IV SCH (21:43)
--- NOTE | 2020-11-25 05:51 | Billing Data ---
Date of Service November 25, 2020 Coding Level of Care Code 16930 Initial Inpt Care Lvl 3
[2020-11-25 07:37] LABS: Basophils # (auto) 0.05 K/uL (0-0.2); Basophils % (auto) 0.5 %; Eosinophils # (auto) 0.06 K/uL (0-0.5); Eosinophils % (auto) 0.6 %; Hematocrit (blood only) 23.4 % (37-47); Hemoglobin 7.4 g/dL (12.0-16.0); Immature Granulocytes # (auto) 0.02 K/uL (0.00-0.02); Immature Granulocytes % (auto) 0.2 %; Lymphocytes # (auto) 1.49 K/uL (1.2-3.4); Lymphocytes % (auto) 14.5 %; Mean Corpuscular Hemoglobin 22.6 pg (25-34); Mean Corpuscular Hgb Conc 31.6 g/dL (32-36); Mean Corpuscular Volume 71.6 fL (80-100); Mean Platelet Volume 8.2 fL (7.4-10.4); Monocytes # (auto) 1.08 K/uL (0.11-0.59); Monocytes % (auto) 10.5 %; Neutrophils # (auto) 7.61 K/uL (1.4-6.5); Neutrophils % (auto) 73.7 %; Platelet Count 314 K/uL (130-400); RDW Coefficient of Variation 23.7 % (11.5-14.5); RDW Standard Deviation 62.4 fL (36.4-46.3); Red Blood Count 3.27 M/uL (4.2-5.4); White Blood Count 10.31 K/uL (4.8-10.8)
[2020-11-25 08:08] LABS: Anisocytosis Present; Hypochromasia Present; Microcytosis Present; Polychromasia 1+
[2020-11-25 08:34] LABS: BUN Creatinine Ratio 40.5 (10-20); Calcium 8.5 mg/dl (8.5-10.1); Creatinine Clr Calc Pharmacy 67.7 ml/min; Est GFR (African American) 98.4 ml/min; Est GFR (Non-African American) 84.9 ml/min; Potassium 3.9 mmol/L (3.5-5.1)
[2020-11-25] MEDS ORDERED: ACETAMINOPHEN 325 MG TAB PO PRN (08:48)
[2020-11-25] MEDS ORDERED: FERROUS GLUCONATE 324 MG TAB PO SCH (09:00)
[2020-11-25] MEDS: PANTOprazole 40 MG in SYRINGE 0 ML IV SCH (09:05)
[2020-11-25] MEDS: MIRABEGRON ER 25 MG TAB PO SCH (09:07)
--- NOTE | 2020-11-25 09:32 | Gastroenterology Progress Note ---
Date of Service November 25, 2020 Assessment & Plan (1) Anemia: (2) Acute GI bleeding: Symptomatic anemia s/p EGD with findings of bleeding angioectasia. Hemostasis via cautery. -Diet as tolerated. -Continue Pantoprazole 40 mg IV twice daily as ordered. -Continue to monitor H/H. -Supportive care per primary team. Thank you for allowing us to participate in the care of this patient. If you should have any further questions or concerns, do not hesitate to contact us at extension [phone] or [phone]. Admission and Anticipated Discharge Date Admission Date: November 23, 2020 Subjective Patient states she is doing well and hopes to go home. Tolerating a regular diet. EGD yesterday with hemostasis. Denies any post procedure abdominal pain, nausea or vomiting or further melena. Hemoglobin did drop to 7.4 but generally stable. Review of Systems Constitutional: no problem reported Gastrointestinal: as per Subjective / HPI Physical Exam Constitutional: WD/WN, vitals as above well developed and well nourished Respiratory: normal respiratory effort Musculoskeletal: Extremities: extremities normal to inspection Psychiatric: A+Ox3, euthymic affect Results & Data Results & Data ([facility]) Vital Signs (Past 12 Hours) Vital Signs Temp Pulse Pulse Resp BP Pulse Ox 11/25/20 07:00 36.8 C 78 20 171/77 H 94 11/25/20 03:01 36.9 C 81 18 146/77 H 94 11/24/20 23:31 150/70 H 11/24/20 23:17 37 C 88 18 165/78 H 93 11/24/20 22:39 80 PG Care Time/CCT Total # of Minutes Spent Total Time Spent with Patient: Total time spent is greater than 50% in coordination of care (as documented) at patient's floor/unit and/or counseling patient: Coding Level of Care Code 34262 Subseq Hosp Care Lvl 3 Diagnoses Anemia D64.9 Acute GI bleeding K92.2
--- NOTE | 2020-11-25 10:18 | Discharge Summary ---
Date of Service November 25, 2020 Admission HPI Per Admitting Provider Mrs. Henderson is an 80 yo woman who presented to the emergency department for evaluation of black tarry stools. She had two episodes of melena earlier today - at the time, she and her were in [place] visiting their grandchildren. They drove home and immediately came in for evaluation. She did vomit x 1 this morning, although it was non-bloody and non-bilious. She endorses some mild, generalized abdominal pain. She has not had any fever/chills or diarrhea. She is not on a blood thinner, does not take aspirin. No etoh use. Only occasional NSAID use. She denies any previous episodes of melena. Prior to this episode, patient endorses dyspnea on exertion, which has been progressive over the past several weeks. It did get notably worse yesterday. There is never any associated chest pain, She endorses associated lightheadedness and generalized weakness. She has had colonoscopies int he past- she is unsure of when her most recent one was. Social Hx: She lives at home with her In the ED she was afebrile, HR was elevated to 119, BP was normal. Her Hgb was 6.2, MCV was 63, coags were normal, Hemoccult stool positive. WBC was elevated to 18 with neutrophil predom. Platelet elevated to 435. Electrolytes normal. Creatinine elevated to 1.41, up from baseline of 0.95. BUN increased to 83. Troponin detectable but not elevated. CXR was normal. Cat scan of abdomen and pelvis showed a large hiatal hernia, no other notable findings. She was given 1 liter of IV NSS, started on a protonix drip, given 20mg IV famotidine, Two units of packed RBCs were ordered and first was transfusing. Admission Exam Per Admitting Provider Constitutional: WD/WN, vitals as above cooperative; no acute distress Eyes: + anicteric sclerae ENMT: external ear and nose normal, oropharynx normal Neck: normal visual inspection and trachea midline Respiratory: normal respiratory effort, lungs clear to auscultation Cardiovascular: Rate/Rhythm: regular rhythm and + tachycardic Heart Sounds: normal S1, normal S2 and + murmur (systolic ejection ) Gastrointestinal (Abdomen): Inspection/Auscultation: abdomen normal to insp ection and normal bowel sounds Percussion/Palpation: + abdomen tender (LLQ) and abdomen soft; no guarding and no hepatosplenomegaly Skin: no rashes, warm and dry Psychiatric: A+Ox3, euthymic affect Principal Diagnosis acute blood loss anemia related to upper GI bleed from AVM Discharge Exam Constitutional WD/WN, vitals as above Eyes PERRL, conjunctivae normal, anicteric sclerae ENMT external ear and nose normal, oropharynx normal Neck trachea midline, no thyromegaly Respiratory normal respiratory effort, lungs clear to auscultation Cardiovascular RRR, no murmur, no edema Gastrointestinal (Abdomen) normal bowel sounds, soft, nontender, no hepatosplenomegaly Musculoskeletal no cyanosis or clubbing, extremities motor strength 5/5 Skin no rashes, warm and dry Neurologic PERRL, EOMI, accommodation nl, no face palsy, no dysarthria Psychiatric A+Ox3, euthymic affect Discharge Data Allergies Allergy/AdvReac Type Severity Reaction Status Date / Time amlodipine Allergy Intermediate RASH Verified 11/23/20 21:37 celecoxib Allergy Intermediate HIVES Verified 11/23/20 21:37 hydrochlorothiazide AdvReac Intermediate hyponatremi Verified 11/23/20 21:37 a Consultations 11/23/20 21:21 ED Decision to Admit Stat 11/24/20 00:59 Consult Gastroenterology Routine Procedures Performed Operation Date: 11/24/20 16:45 Actual Procedures p EGD Hemostasis - Diego Carrillo MD Ordered Studies 11/23/20 19:57 CT abd pelvis wo con Stat Hospital Course (1) Acute GI bleeding: (1) Acute GI bleeding: - Suspected GI bleed given melena and anemia on presentation, likely upper GI due to BUN elevation and melena - Initially started on protonix gtt, transitioned to now protonix 40mg BID PO on discharge - Hgb 6.2 on admission -> 7.7 (11/24) and 7.4 on day of discharge - Endoscopy showed 1 angioectasia in the stomach which was cauterized and clipped. - Given a dose of Venofer IV due to suspicion for iron deficiency anemia as well - Sent home with PO Iron supplementation - Started on CTX on admission, discontinued the following AM. (2) Acute kidney injury: - Most likely pre renal etiology given improvement with IV fluids - Creatinine improved today 1.41 (11/23) -> .81 (11/24) - Held home valsartan (3) HTN (hypertension): - Held home losartan, HCTZ - Held home metoprolol Total Time Total Time Spent Total Time Spent (In Minutes): <30 Discharge Plan Discharge Items Patient Disposition: Home - Self-Care Reason For Visit: MELENA Discharge Diagnosis: Upper GI Bleed Activity: Per Instructions section Non-emergency contact: Primary Care Provider and [employer]r Call non-emergency contact if: your symptoms worsen and your temperature is above 101 Follow-up/Referrals: Diego Carrillo MD [Physician] - Bruce Zapata DO [Primary Care Provider] - 12/03/20 11:30 am (If you have any questions or need to change this appointment, please call [phone].) Diet: Regular Addtl Attending Provider Instructions: Ms. Henderson, It was our pleasure caring for you at [facility] from 11/23/20 - 11/25/20 for your gastrointestinal bleeding. You initially presented after having multiple dark and tarry bowel movements, in addition to chronic weakness that had been worsening the past few weeks. You were transfused with blood while inpatient as your hemoglobin (blood) levels were low which improved your symptoms. You were also evaluated by our [employer] And Repairer who underwent an EGD where they found a single bleeding angioectasia (blood vessel that's near the surface which was bleeding) which was cauterized and clipped to stop the bleeding. Your hemoglobin levels were reexamined and found to be stable. You were also given IV iron as you likely have an iron deficiency as well. Please have a follow up appointment with your PCP in the next 1 to check your CBC (blood count levels) again to ensure they are not worsening. If you notice that you become weaker, dizzy easier, short of breath, or have dark tarry stools, bright red stools, or bright red/coffee ground vomiting, please see your PCP sooner or present to the ED. -You were prescribed a PPI, please take this until discontinued by your PCP or GI doctor -Pantoprazole 40mg by mouth twice a day -You were also prescribed an Iron supplement, please continue to take this -Ferrous Gluconate 2 tablets by mouth daily. -Please follow up with your PCP in the next 1 week -Please follow up with GI for possible capsule endoscopy -Please have a repeat CBC at that appointment to ensure your blood count levels remain the same or improve Pending Studies at Discharge: No Stand-Alone Forms: My [facility], Smoking Cessation Medications and DC Order Prescriptions: New pantoprazole 40 mg tablet,delayed release (DR/EC) 40 mg PO BID 30 Days Qty: 60 RF: 2 ferrous gluconate 324 mg (38 mg iron) tablet 648 mg PO DAILY 30 Days Qty: 60 RF: 2 Continued hydrochlorothiazide 12.5 mg capsule 12.5 mg PO QAM RF: 0 Zioptan (PF) 0.0015 % dropperette 1 drp ophthalmic (eye) HS RF: 0 biotin 2,500 mcg capsule 2,500 mcg PO QAM RF: 0 calcium carbonate-vitamin D3 [Calcium 600 with Vitamin D3] 600 mg(1,500mg) - 500 unit capsule 1 cap PO QAM RF: 0 dorzolamide-timolol 22.3-6.8 mg/mL drops 1 drops OP HS RF: 0 lutein 6 mg tablet 6 mg PO QAM RF: 0 metoprolol succinate 25 mg tablet extended release 24 hr 25 mg PO QAM RF: 0 ascorbic acid (vitamin C) 500 mg tablet 500 mg PO QAM RF: 0 cholecalciferol (vitamin D3) 1,000 unit (25 mcg) tablet 2,000 units PO QAM RF: 0 cyclosporine 0.05 % dropperette 1 drp OP BID RF: 0 olmesartan 40 mg tablet 40 mg PO PM RF: 0 mirabegron 25 mg tablet extended release 24 hr 25 mg PO QAM RF: 0 Discontinued valsartan 320 mg tablet 320 mg PO DAILY RF: 0 ibuprofen 200 mg Tablet 400 mg PO Q6H PRN (Reason: Pain) RF: 0 Discharge Orders: Discharge Order (Routine); Ordered 11/25/20 Ordered By: David Adan Admission Data Admit Date/Time: 11/23/20 22:08 Attending Provider: Jose Armando Orellana Admit Provider: Tiffani Tenorio Primary Care Provider: Bruce Zapata Other Providers: Regan Hernandez ; Axel Quevedo Other Interventions: Discharge Summary Assessment (RN) Last Done: 11/25/20 11:16 Supervising Physician Co-Signing Physician Notes I personally examined the patient and verified all graham points of history and exam, discussed case, and agree with decision making with Dr Adan. eating well no abdominal pain really wants to go home. updated on plan and answered all questions to the best of my ability. Vitals noted, in general she is awake and alert pleasant no distress. HEENT normocephalic atraumatic mucous membranes moist. Breathing unlabored no accessory muscle use good effort. Skin shows no rashes no pallor or icterus. Upper GI bleed with subsequent acute blood loss anemia requiring 2 units transfusionappears to been related to gastric AVM, which has now been cauterized. Consider capsule endoscopy to assess overall burden of AVMs, versus watchful waiting with periodic hemoglobins as an outpatient. Continue acid suppression as outpt for now, tolerating diet. supplement iron. stable for home. AKIrelated to hypoperfusion from her anemiaimproved with transfusion Leukocytosis (now resolved), and (also now resolved) thrombocytosisno signs or symptoms of infection, suspect reactive. stable for home, outpt f/u Resident Activity Tracking Resident Involvement: Resident Care Provided Care Provided: Adult Hospital Medicine
[2020-11-25] MEDS ORDERED: IRON SUCROSE 200 MG in 0.9 % SODIUM CHLORIDE 100 ML IV ONE (10:30)
--- NOTE | 2020-11-25 17:32 | Billing Data ---
Date of Service November 25, 2020 Coding Level of Care Code D/C Day Management <30 mins
== END 2020-11-25 12:30 | disposition home or self-care (01) | DRG 378 ==
LOC: ED 19:08 → 2N 22:08 → SUATTDRO 22:08 → 2N 11-24 00:27